=== PATIENT | female | born 1960 | race Caucasian/White ===

== ENCOUNTER 2016-12-07 05:14 | Emergency (ER) | payer MEDICAID ==
[2016-12-07] MEDS ORDERED: ASPIRIN 81 MG TABLET, CHEWABLE PO ONE (05:17)
[2016-12-07] MEDS ORDERED: DILTIAZEM HCL/D5W 125 MG/125 ML RTUINJ IV PRN (05:43)
[2016-12-07] MEDS ORDERED: DILTIAZEM HCL INJ 25 MG/5 ML VIAL IV ONE (05:43)
[2016-12-07 05:44] LABS: PROTHROMBIN TIME 12.6 SEC (11.4-15.4)
--- NOTE | 2016-12-07 05:45 | ER Document Report ---
ED Medical Screen (RME) <DAY HILL - Last Filed: 12/07/16 05:50> <ROGER HOLT - Last Filed: 12/07/16 07:35> - General Chief Complaint: Chest Pain Stated Complaint: CHEST PAIN Time Seen by Provider: 12/07/16 05:42 - Vital signs Vitals: Resp BP Pulse Ox 20 137/82 H 100 12/07/16 05:27 12/07/16 05:27 12/07/16 05:27 Course - Laboratory Result Diagrams: 12/07/16 05:27 12/07/16 05:27 <DAY HILL - Last Filed: 12/07/16 05:50> - Laboratory Result Diagrams: 12/07/16 06:00 12/07/16 05:27 <ROGER HOLT - Last Filed: 12/07/16 07:35> - Re-evaluation Re-evalutation: 12/07/16 07:35 Joshua transfer paged (ROGER HOLT) - Vital Signs Vital signs: Temp Pulse Resp BP Pulse Ox 23 H 125/90 H 94 12/07/16 07:19 12/07/16 07:19 12/07/16 07:19 - Laboratory Laboratory results interpreted by me: 12/07/16 12/07/16 12/07/16 05:27 05:27 05:27 WBC Hgb Hct Seg Neutrophils % Absolute Neutrophils Chloride 108 H Glucose 247 H Calcium 10.5 H Magnesium 1.4 L TSH 0.11 L 12/07/16 06:00 WBC 14.3 H Hgb 11.5 L Hct 33.7 L Seg Neutrophils % 78.7 H Absolute Neutrophils 11.2 H Chloride Glucose Calcium Magnesium TSH
[2016-12-07 05:53] LABS: ALANINE AMINOTRANSFERASE 22 U/L (9-52); ALBUMIN 4.2 g/dL (3.5-5.0); ALKALINE PHOSPHATASE 116 U/L (38-126); ANION GAP 13 (5-19); ASPARTATE AMINO TRANSFERASE 19 U/L (14-36); BILIRUBIN,DIRECT 0.4 mg/dL (0.0-0.4); BILIRUBIN,TOTAL 0.6 mg/dL (0.2-1.3); BLOOD UREA NITROGEN 16 mg/dL (7-20); CALCIUM 10.5 mg/dL (8.4-10.2); CARBON DIOXIDE 24 mmol/L (22-30); CHLORIDE 108 mmol/L (98-107); CREATINE KINASE 70 U/L (30-135); CREATININE RESULT 0.67 mg/dL (0.52-1.25); GLUCOSE 247 mg/dL (75-110); POTASSIUM 4.2 mmol/L (3.6-5.0); SODIUM 144.8 mmol/L (137-145); TOTAL PROTEIN 6.8 g/dL (6.3-8.2)
[2016-12-07 06:21] LABS: CREATINE KINASE MB 4.06 ng/mL (<4.55)
[2016-12-07 06:23] LABS: TROPONIN I 0.547 ng/mL
[2016-12-07 06:34] LABS: ABSOLUTE BASOPHILS # (AUTO) 0.1 10^3/uL (0.0-0.2); ABSOLUTE EOSINOPHILS # (AUTO) 0.1 10^3/uL (0.0-0.6); ABSOLUTE LYMPHOCYTES (AUTO) 2.3 10^3/uL (0.5-4.7); ABSOLUTE MONOCYTES (AUTO) 0.6 10^3/uL (0.1-1.4); ABSOLUTE NEUT (AUTO) 11.2 10^3/uL (1.7-8.2); BASOPHILS % (AUTO) 0.9 % (0-2); EOSINOPHILS % (AUTO) 0.7 % (0-6); HEMATOCRIT 33.7 % (36.0-47.0); HEMOGLOBIN 11.5 g/dL (12.0-15.5); HGB HCT DIFFERENCE 0.8; LYMPHOCYTES % (AUTO) 15.8 % (13-45); MEAN CORPUSCULAR HEMOGLOBIN 30.5 pg (27.0-33.4); MEAN CORPUSCULAR HGB CONC 34.1 g/dL (32.0-36.0); MEAN CORPUSCULAR VOLUME 89 fl (80-97); MONOCYTES % (AUTO) 3.9 % (3-13); RED BLOOD COUNT 3.78 10^6/uL (3.72-5.28); RED CELL DISTRIBUTION WIDTH 13.6 % (11.5-14.0); SEGMENTED NEUTROPHILS % (AUTO) 78.7 % (42-78); WHITE BLOOD COUNT 14.3 10^3/uL (4.0-10.5)
[2016-12-07] MEDS ORDERED: MORPHINE SULFATE 10 MG/ML INJ IV ONE (06:41)
[2016-12-07] MEDS ORDERED: ONDANSETRON HCL INJ/PF 4 MG/2 ML SDV IV ONE ×2 (06:42→09:53)
--- NOTE | 2016-12-07 07:35 | ER Document Report ---
ED General - General Chief Complaint: Chest Pain Stated Complaint: CHEST PAIN Time Seen by Provider: 12/07/16 05:42 Mode of Arrival: Medic Information source: Patient Notes: 56-year-old female history of double bypass in June at [facility] presents with complaints of chest pain shortness of breath difficulty breathing, EMS noted her heart rate in the 160s attempted to give the patient adenosine 2 for SVT but was unable to resolve the tachycardia. Patient refused any further intervention Patient notes she has had fast heart rates in the past but nothing like this - HPI Onset: Just prior to arrival Onset/Duration: Sudden Quality of pain: Pressure Severity: Moderate Pain Level: 3 Associated symptoms: Chest pain, Shortness of breath Exacerbated by: Denies Relieved by: Denies Similar symptoms previously: Yes Recently seen / treated by doctor: Yes Past Medical History - Social History Smoking Status: Never Smoker Cigarette use (# per day): No Chew tobacco use (# tins/day): No Smoking Education Provided: No Family History: Reviewed & Not Pertinent Review of Systems - Review of Systems Notes: REVIEW OF SYSTEMS: CONSTITUTIONAL : Denies fever, chills, or sweats. Denies recent illness. EENT: Denies eye, ear, throat, or mouth pain or symptoms. Denies nasal or sinus congestion or discharge. Denies throat, tongue, or mouth swelling or difficulty swallowing. CARDIOVASCULAR: Admits to chest pain RESPIRATORY: Admits to shortness of breath GASTROINTESTINAL: Denies abdominal pain or distention. Denies nausea, vomiting , or diarrhea. Denies blood in vomitus, stools, or per rectum. Denies black, tarry stools. Denies constipation. GENITOURINARY: Denies difficulty urinating, painful urination, burning, frequency, blood in urine, or discharge. FEMALE GENITOURINARY: Denies vaginal bleeding, heavy or abnormal periods, irregular periods. Denies vaginal discharge or odor. MUSCULOSKELETAL: Denies back or neck pain or stiffness. Denies joint pain or swelling. SKIN: Denies rash, lesions or sores. HEMATOLOGIC : Denies easy bruising or bleeding. LYMPHATIC: Denies swollen, enlarged glands. NEUROLOGICAL: Denies confusion or altered mental status. Denies passing out or loss of consciousness. Denies dizziness or lightheadedness. Denies headache. Denies weakness or paralysis or loss of use of either side. Denies problems with gait or speech. Denies sensory loss, numbness, or tingling. Denies seizures. PSYCHIATRIC: Denies anxiety or stress. Denies depression, suicidal ideation, or homicidal ideation. ALL OTHER SYSTEMS REVIEWED AND NEGATIVE. PHYSICAL EXAMINATION: GENERAL: Well-appearing, well-nourished and in no acute distress. HEAD: Atraumatic, normocephalic. EYES: Pupils equal round and reactive to light, extraocular movements intact, conjunctiva are normal. ENT: Nares patent, oropharynx clear without exudates. Moist mucous membranes. NECK: Normal range of motion, supple without lymphadenopathy LUNGS: Breath sounds clear to auscultation bilaterally and equal. No wheezes rales or rhonchi. HEART: Sinus tachycardia noted ABDOMEN: Soft, nontender, nondistended abdomen. No guarding, no rebound. No masses appreciated. Female : deferred Musculoskeletal: Normal range of motion, no pitting or edema. No cyanosis. NEUROLOGICAL: Cranial nerves grossly intact. Normal speech, normal gait. Normal sensory, motor exams PSYCH: Normal mood, normal affect. SKIN: Warm, Dry, normal turgor, no rashes or lesions noted. Dictation was performed using [employer] voice recognition software Physical Exam - Vital signs Vitals: Resp BP Pulse Ox 20 137/82 H 100 12/07/16 05:27 12/07/16 05:27 12/07/16 05:27 Course - Re-evaluation Re-evalutation: 12/07/16 07:38 Dr Sammi Lewis accepts transfer 12/07/16 10:06 I had contacted direction after noting that the patient was having sinus tachycardia chest pain with an elevated troponin, after speaking with them they agree for transfer, CTA was negative for a pulmonary emboli 12/07/16 10:07 Patient's heart rate is in the 130s at this time sinus tachycardia I am unsure if she actually had SVT or was just in sinus tach 12/07/16 10:11 Heparin has been started given that CTA was negative. Appears transport will be here at 12:00 patient notes she is pain-free just nauseous at this - Vital Signs Vital signs: Temp Pulse Resp BP Pulse Ox 20 122/81 98 12/07/16 09:43 12/07/16 09:43 12/07/16 09:43 - Laboratory Result Diagrams: 12/07/16 06:00 12/07/16 05:27 Laboratory results interpreted by me: 12/07/16 12/07/16 12/07/16 05:27 05:27 05:27 WBC Hgb Hct Seg Neutrophils % Absolute Neutrophils Chloride 108 H Glucose 247 H Calcium 10.5 H Magnesium 1.4 L TSH 0.11 L 12/07/16 06:00 WBC 14.3 H Hgb 11.5 L Hct 33.7 L Seg Neutrophils % 78.7 H Absolute Neutrophils 11.2 H Chloride Glucose Calcium Magnesium TSH - Diagnostic Test Radiology reviewed: Image reviewed, Reports reviewed - EKG Interpretation by Me EKG shows normal: Sinus rhythm, [place], Intervals, QRS Complexes Rate: Tachycardia Critical Care Note - Critical Care Note Total time excluding time spent on procedures (mins): 38 Comments: 38 minutes of critical care time spent in direct contact evaluating and reevaluating the patient, treating symptoms, reviewing labs and studies and speaking with family and consultants excluding any procedures Discharge - Discharge Clinical Impression: SVT (supraventricular tachycardia), Elevated troponin Coronary artery disease Qualifiers: Coronary Disease-Associated Artery/Lesion type: unspecified vessel or lesion type [place] vs. transplanted heart: [place] heart Associated angina: angina presence unspecified Qualified Code(s): I25.10 - Atherosclerotic heart disease of [place] coronary artery without angina pectoris Disposition: OTHER
--- NOTE | 2016-12-07 07:36 | RADIOLOGY REPORT (SQ) ---
EXAM DESCRIPTION: CHEST SINGLE VIEW COMPLETED DATE/TIME: 12/07/2016 7:27 am REASON FOR STUDY: palpitations COMPARISON: None. EXAM PARAMETERS: NUMBER OF VIEWS: One view. TECHNIQUE: Single frontal radiographic view of the chest acquired. RADIATION DOSE: NA LIMITATIONS: None. FINDINGS: LUNGS AND PLEURA: Moderate interstitial markings with septal thickening and lower lobe pre dominance. MEDIASTINUM AND HILAR STRUCTURES: No masses. Contour normal. HEART AND VASCULAR STRUCTURES: Heart normal in size. Normal vasculature. BONES: No acute findings. HARDWARE: Sternotomy. OTHER: No other significant finding. IMPRESSION: Moderate interstitial markings with. Differential diagnosis includes pulmonary edema an d/or chronic interstitial lung disease. TECHNICAL DOCUMENTATION: JOB ID: [id number]
--- NOTE | 2016-12-07 08:55 | RADIOLOGY REPORT (SQ) ---
EXAM DESCRIPTION: CTA CHEST COMPLETED DATE/TIME: 12/07/2016 8:39 am REASON FOR STUDY: sob, chest pain COMPARISON: Chest x-ray dated 12/07/2016. TECHNIQUE: CT scan of the chest performed using helical scanning technique with dynamic intravenous contrast injection. Images reviewed with lung, soft tissue and bone windows. Reconstructed coronal and sagittal MPR images reviewed. Additional 3 dimensional post-processing performed to develop Maximal Intensity Projection images (IN P). All images stored on PACS. All CT scanners at this facility use dose modulation, iterative reconstruction, and/or weight based d osing when appropriate to reduce radiation dose to as low as reasonably achievable (ALARA). [facility]: Dose Right [facility]: CareDose [facility]: Dose Right [facility]: Teradose 4D [facility]: [employer] CONTRAST TYPE AND DOSE: contrast/concentration: Isovue 370.00 mg/ml; Total Contrast Delivered: 65.0 ml; Total Saline Delivered: 105.1 ml Contrast bolus optimized for the pulmonary arteries. Not diagnostic for the aorta. RENAL FUNCTION: BUN 16 creatinine 0.67. RADIATION DOSE: Up-to-date CT equipment and radiation dose reduction techniques were employed. CTDIv ol: 14.3 - 16.5 mGy. DLP: 542 mGy-cm. . LIMITATIONS: None. FINDINGS: LUNGS AND PLEURA: Diffuse interstitial prominence. Small pleural effusions. No focal inf iltrates. No pneumothorax. AORTA AND GREAT VESSELS: No aneurysm. Contrast bolus not optimized for the aorta. HEART: No pericardial effusion. No significant coronary artery calcifications. PULMONARY ARTERIES: No emboli visualized in the main pulmonary arteries or the segmental branches. HILAR AND MEDIASTINAL STRUCTURES: No identified masses or abnormal nodes. HARDWARE: Sternotomy wires. Mitral valve prosthesis. UPPER ABDOMEN: No significant findings. Limited exam. THYROID AND OTHER SOFT TISSUES: No masses. No adenopathy. BONES: No acute or significant finding. 3D MIPS: Confirm above findings. OTHER: No other significant finding. IMPRESSION: 1. NORMAL CTA OF THE CHEST. NO PULMONARY EMBOLI. 2. SMALL PLEURAL EFFUSIONS. DIFFUSE INTERSTITIAL PROMINENCE WHICH MAY BE DUE TO INTERSTITIAL EDEMA A ND/OR CHRONIC SCARRING. COMMENT: Quality ID # [id number]: Final reports with documentation of one or more dose reduction techniques (e.g., Automated exposure control, adjustment of the mA and/or kV according to patient size, use of iterative reconstruction technique) TECHNICAL DOCUMENTATION: JOB ID: [id number] [employer]- All Rights Reserved
[2016-12-07] MEDS ORDERED: HYDROMORPHONE HCL INJ/PF 2 MG/ML AMPULE IV ONE (09:22)
[2016-12-07] MEDS ORDERED: HEPARIN SOD (PORCINE) 1,000 UNIT/ML 10 ML VIAL IV PRN (10:11)
[2016-12-07] MEDS ORDERED: HEPARIN SOD (PORCINE) 1,000 UNIT/ML 10 ML VIAL IV ONE (10:11)
[2016-12-07] MEDS ORDERED: HEPARIN SODIUM,PORCINE/D5W 25,000 UNIT/250 ML RTUINJ IV PRN (10:11)
--- NOTE | 2016-12-07 11:49 | EKG REPORT ---
SEVERITY:- ABNORMAL ECG - SINUS TACHYCARDIA PROBABLE LEFT ATRIAL ABNORMALITY ANTERIOR INFARCT, AGE INDETERMINATE BORDERLINE T ABNORMALITIES, INFERIOR LEADS : Confirmed by: Maxwell Murray 07-Dec-2016 11:47:54
[2016-12-07 13:07] VITALS: BP 118/78
== END 2016-12-07 13:07 | disposition other institution (70) ==
LOC: ER 05:14
DX: I47.1 Supraventricular tachycardia (principal); R74.8 Abnormal levels of other serum enzymes; I25.10 Atherosclerotic heart disease of native coronary artery without angina pectoris; R06.02 Shortness of breath; R07.9 Chest pain, unspecified; Z95.1 Presence of aortocoronary bypass graft
CPT/HCPCS: 93005; 96376; 99291; 96374; 96375; 36415; 82553; 82550; 83735; 84443; 85025; 85610; 80053; 84484; 71010; 71275; 93010; J1644; J2270; J1170; J2405

== ENCOUNTER 2017-03-19 21:43 | Emergency (ER) | payer MEDICAID ==
--- NOTE | 2017-03-19 22:34 | ER Document Report ---
ED General - General Chief Complaint: Leg Injury Stated Complaint: LEG PAIN Time Seen by Provider: 03/19/17 22:29 Notes: Patient is a 56-year-old female who presents with right leg pain that is been present for the past 1 month and has gotten progressively worse. She states that this started after she had a peripheral angiogram performed for peripheral arterial disease. She states that they performed a puncture on her left side to catheterized the right side. She states that since that time she has had a intermittent, shocking, shooting pain to the right lower extremity that is severe. She states that it is seems to be worse at night. She does note a history of long-standing peripheral neuropathy and states that this feels like a severe version of that. However she states when she contacted the follow-up surgical office she was encouraged to come to the emergency department for evaluation of a possible DVT by ultrasound. She has no prior history of DVT or pulmonary embolus. She does not take any form of anticoagulation. TRAVEL OUTSIDE OF THE [place] IN LAST 30 DAYS: No - Related Data Allergies/Adverse Reactions: lisinopril Allergy (Verified 03/19/17 21:50) Past Medical History - General Information source: Patient - Social History Smoking Status: Never Smoker Frequency of alcohol use: None Drug Abuse: None Lives with: Family Family History: Reviewed & Not Pertinent Patient has suicidal ideation: No Patient has homicidal ideation: No Renal/ Medical History: Denies: Hx Peritoneal Dialysis Review of Systems - Review of Systems Notes: Constitutional: Negative for fever. HENT: Negative for sore throat. Eyes: Negative for visual changes. Cardiovascular: Negative for chest pain. Respiratory: Negative for shortness of breath. Gastrointestinal: Negative for abdominal pain, vomiting or diarrhea. Genitourinary: Negative for dysuria. Musculoskeletal: Positive for right leg pain Skin: Negative for rash. Neurological: Negative for headaches, weakness or numbness. 10 point ROS negative except as marked above and in HPI. Physical Exam - Vital signs Vitals: Resp Pulse Ox 11 L 100 03/19/17 22:18 03/19/17 22:18 Interpretation: Normal Notes: PHYSICAL EXAMINATION: GENERAL: Well-appearing, well-nourished and in no acute distress. HEAD: Atraumatic, normocephalic. EYES: Pupils equal round and reactive to light, extraocular movements intact, sclera anicteric, conjunctiva are normal. ENT: nares patent, oropharynx clear without exudates. Moist mucous membranes. NECK: Normal range of motion, supple without lymphadenopathy LUNGS: Breath sounds clear to auscultation bilaterally and equal. No wheezes rales or rhonchi. HEART: Regular rate and rhythm without murmurs ABDOMEN: Soft, nontender, normoactive bowel sounds. No guarding, no rebound. No masses appreciated. EXTREMITIES: Normal range of motion, no pitting or edema. No cyanosis. NEUROLOGICAL: No focal neurological deficits. Moves all extremities spontaneously and on command. PSYCH: Normal mood, normal affect. SKIN: Warm, Dry, normal turgor, no rashes or lesions noted. Course - Re-evaluation Re-evalutation: 03/19/17 22:32 Patient presents with 1 month of leg pain unchanged today but was referred to the emergency department by her primary doctor with concerns of possible DVT after having a peripheral angiography with stent placement on the right side 1 month ago. Patient describes her symptoms to be much more neuropathic in origin describing it as a shocking, burning sensation from her knee towards her ankle that has been worse since the procedure suggesting a possible neurologic irritation during the procedure itself. Initially patient had hypotension at presentation but this was normalized by the time of my evaluation and she denies any additional symptoms. She notes that she has been checking her blood pressure intermittently at home and notes that it sometimes is low but then will normalize on the next check. Unfortunately cannot obtain a venous Doppler ultrasound given the time of the night and I encouraged the patient to return to the emergency department in the morning for completion of the study if they concern persist for DVT. I explained the patient that I cannot definitively rule this diagnosis out without a ultrasound but have an overall low clinical suspicion given the absence of any evidence of peripheral edema, as well as her clinical history. Will obtain basic laboratories to evaluate for significant anemia given her recent angiography procedure and initial hypotension. Multiple rechecks was in the room remained persistently normal. 03/20/17 00:12 Labs are unremarkable. Blood pressure remains within normal limits on recheck. At this time will discharge with return precautions and follow-up recommendations. Verbal discharge instructions given a the bedside and opportunity for questions given. Medication warnings reviewed. Patient is in agreement with this plan and has verbalized understanding of return precautions and the need for return to the emergency department in the morning for a venous Doppler ultrasound to exclude a DVT. - Vital Signs Vital signs: Temp Pulse Resp BP Pulse Ox 16 103/58 L 100 03/20/17 00:27 03/20/17 00:10 03/20/17 00:27 - Laboratory Result Diagrams: 03/19/17 22:37 03/19/17 22:37 Laboratory results interpreted by me: 03/19/17 03/19/17 22:37 22:37 Hgb 11.5 L Hct 34.6 L Est GFR (Non-Af Amer) 55 L Glucose 188 H Discharge - Discharge Clinical Impression: Right leg pain Condition: Good Disposition: HOME, SELF-CARE Additional Instructions: Please return to the emergency department in the morning for a venous ultrasound of your right leg as requested by your doctor. Return for any additional concerns you may have.
[2017-03-19 22:49] LABS: ABSOLUTE BASOPHILS # (AUTO) 0.1 10^3/uL (0.0-0.2); ABSOLUTE EOSINOPHILS # (AUTO) 0.3 10^3/uL (0.0-0.6); ABSOLUTE LYMPHOCYTES (AUTO) 3.6 10^3/uL (0.5-4.7); ABSOLUTE MONOCYTES (AUTO) 0.6 10^3/uL (0.1-1.4); ABSOLUTE NEUT (AUTO) 5.3 10^3/uL (1.7-8.2); BASOPHILS % (AUTO) 0.7 % (0-2); EOSINOPHILS % (AUTO) 2.7 % (0-6); HEMATOCRIT 34.6 % (36.0-47.0); HEMOGLOBIN 11.5 g/dL (12.0-15.5); LYMPHOCYTES % (AUTO) 36.8 % (13-45); MEAN CORPUSCULAR HEMOGLOBIN 30.3 pg (27.0-33.4); MEAN CORPUSCULAR HGB CONC 33.3 g/dL (32.0-36.0); MEAN CORPUSCULAR VOLUME 91 fl (80-97); MONOCYTES % (AUTO) 5.9 % (3-13); PLATELET COUNT 192 10^3/uL (150-450); SEGMENTED NEUTROPHILS % (AUTO) 53.9 % (42-78); TOTAL CELLS COUNTED % (AUTO) 100 %; WHITE BLOOD COUNT 9.8 10^3/uL (4.0-10.5)
[2017-03-19 23:01] LABS: ANION GAP 12 (5-19); BLOOD UREA NITROGEN 16 mg/dL (7-20); CALCIUM 9.9 mg/dL (8.4-10.2); CARBON DIOXIDE 26 mmol/L (22-30); CHLORIDE 104 mmol/L (98-107); GLUCOSE 188 mg/dL (75-110); POTASSIUM 4.1 mmol/L (3.6-5.0); SODIUM 141.7 mmol/L (137-145)
[2017-03-20 00:27] VITALS: BP 103/58
--- NOTE | 2017-03-20 07:57 | EKG REPORT ---
SEVERITY:- ABNORMAL ECG - SINUS RHYTHM PROBABLE LVH WITH SECONDARY REPOL ABNRM : Confirmed by: Yuki Covarrubias MD 20-Mar-2017 07:56:14
== END 2017-03-20 00:37 | disposition home or self-care (01) ==
LOC: ER 21:43
DX: M79.604 Pain in right leg (principal); I73.9 Peripheral vascular disease, unspecified; I95.9 Hypotension, unspecified; Z95.820 Peripheral vascular angioplasty status with implants and grafts; Z88.8 Allergy status to other drugs, medicaments and biological substances
CPT/HCPCS: 36415; 80048; 85025; 93005; 93010; 99284

== ENCOUNTER 2017-06-25 12:14 | Emergency (ER) | payer MEDICAID ==
[2017-06-25] MEDS ORDERED: ASPIRIN 81 MG TABLET, CHEWABLE PO ONE (12:21)
[2017-06-25] MEDS ORDERED: ASPIRIN 325 MG TABLET PO ONE (12:21)
--- NOTE | 2017-06-25 12:23 | ER Document Report ---
Doctor's Note Notes: 06/25/17 12:22 EKG seen / signed Depressions II III aVF and lateral leads D/w Main ED Provider and assistant operations manager Pt to be roomed immediately
[2017-06-25] MEDS ORDERED: NITROGLYCERIN/D5W 50 MG/250 ML RTUINJ IV PRN (12:40)
--- NOTE | 2017-06-25 12:43 | ER Document Report ---
ED General - General Chief Complaint: Chest Pain Stated Complaint: CHEST PAIN Time Seen by Provider: 06/25/17 12:21 Notes: Patient with a history of bypass presents with chest pain central pressure-like nonradiating with nausea and diaphoresis onset 4 AM continuous until she received Nitropaste from paramedics. Extensive cardiac history. Was transferred to [facility] in the last year from here and ruled in for [place], had a subsequent bypass. Claims medication compliance. There was some concern for STEMI on her prehospital EKG and this was faxed to the STEMI center which refused the patient is a STEMI based on EKG. TRAVEL OUTSIDE OF THE [place] IN LAST 30 DAYS: No - Related Data Allergies/Adverse Reactions: lisinopril Allergy (Verified 03/19/17 21:50) Past Medical History - Social History Smoking Status: Former Smoker Family History: Reviewed & Not Pertinent Renal/ Medical History: Denies: Hx Peritoneal Dialysis Review of Systems - Review of Systems Notes: REVIEW OF SYSTEMS GEN: Denies fever, chills, weight loss ENT: Denies sore throat, nasal discharge, ear pain EYES: Denies blurry vision, eye pain, discharge CV: Chest pain RESP: Shortness of breath no cough GI: Denies abdominal pain, nausea, vomiting, diarrhea MSK: Denies joint pain/swelling, edema, SKIN: Denies rash, skin lesions LYMPH: Denies swollen glands/lymph nodes NEURO: Denies headache, focal weakness or numbness, dizziness PSYCH: Denies depression, suicidal or homicidal ideation PHYSICAL EXAMINATION General: Pale, moderate distress Head: Atraumatic, normocephalic ENT: Mouth normal, oropharynx moist, no exudates or tonsillar enlargement Eyes: Conjunctiva normal, pupils equal, lids normal Neck: No JVD, supple, no guarding CVS: Normal rate, regular rhythm, no murmurs Resp: No resp distress, equal and normal breath sounds bilaterally GI: Nondistended, soft, no tenderness to palpation, no rebound or guarding Ext: No deformities, no edema, normal range of motion in upper and lower ext Back: No CVA or midline TTP Skin: No rash, warm Lymphatic: No lymphadeopathy noted Neuro: Awake, alert. Face symmetric. GCS 15. Physical Exam - Vital signs Vitals: Resp BP Pulse Ox 27 H 116/104 H 97 06/25/17 12:37 06/25/17 12:37 04/04/18 12:37 Course - Re-evaluation Re-evalutation: 06/25/17 12:47 Patient presents with acute chest pain and history of coronary disease. Abnormal EKG here consisting of global ST depression, less than 1 m millimeter of elevation in V1 and about a millimeter and a half of elevation in V2. This is new from prior but the ST depressions are similar. While in the ED the patient complained of worse pain. I will switch her to a nitro drip and start Lovenox because I am concerned for an STEMI/unstable angina. EKG was repeated in the posterior fashion and did not show ST elevation. Contacted [facility] for transfer. 06/25/17 13:05 Reassessed at 1 PM. Nitro drip was not started that the patient is pain-free and states that the pain is coming and going. Subsequent repeat EKG showed decreased ST elevation, constituting dynamic change. She is received Lovenox. I discussed her with Dr. Benjamin from cardiology at [facility] and he wants to look at the EKGs before making a decision about activating the [facility] for her or taking her by ground. 06/25/17 13:[address] Benjamin who wants to call the STEMI based on EKG asked for heparin , not Lovenox, and no other meds. They are sending helicopter. Patient is pain -free. - Vital Signs Vital signs: Temp Pulse Resp BP Pulse Ox 98.7 F 21 H 126/80 H 98 06/25/17 13:05 06/25/17 13:01 06/25/17 13:01 06/25/17 13:01 - Laboratory Result Diagrams: 06/25/17 12:35 06/25/17 12:35 Laboratory results interpreted by me: 06/25/17 12:35 RBC 3.69 L Hgb 11.1 L Hct 33.6 L - Diagnostic Test Radiology reviewed: Image reviewed, Reports reviewed - EKG Interpretation by Me EKG shows normal: Sinus rhythm Rate: Normal When compared to previous EKG there are: Changes noted - Diffuse ST depression. Different from prior. ST elevation less than 1 mm in V2 and less than 1 mm in V1. Critical Care Note - Critical Care Note Total time excluding time spent on procedures (mins): 45 Comments: The above patient is critically ill. Not including procedures, but including direct re-evaluations, speaking with patient and/or consultants, interpreting results, and documenting, I spent the total amount of minute listed listed above on critical care time Discharge - Discharge Clinical Impression: Unstable angina pectoris Condition: Critical
[2017-06-25] MEDS ORDERED: ENOXAPARIN SODIUM INJ 60 MG/0.6 ML DISP.SYRIN SUBCUT SCH (12:45)
[2017-06-25] MEDS: ASPIRIN 325 MG TABLET, ENT COATED PO SCH ×2 (12:51→12:52)
[2017-06-25] MEDS ORDERED: HEPARIN SODIUM,PORCINE/D5W 25,000 UNIT/250 ML RTUINJ IV PRN (13:09)
[2017-06-25] MEDS ORDERED: HEPARIN SOD (PORCINE) 1,000 UNIT/ML 10 ML VIAL IV ONE (13:09)
[2017-06-25 13:11] LABS: ABSOLUTE BASOPHILS # (AUTO) 0.1 10^3/uL (0.0-0.2); ABSOLUTE EOSINOPHILS # (AUTO) 0.2 10^3/uL (0.0-0.6); ABSOLUTE LYMPHOCYTES (AUTO) 1.5 10^3/uL (0.5-4.7); ABSOLUTE MONOCYTES (AUTO) 0.4 10^3/uL (0.1-1.4); BASOPHILS % (AUTO) 0.8 % (0-2); EOSINOPHILS % (AUTO) 1.9 % (0-6); HEMATOCRIT 33.6 % (36.0-47.0); HEMOGLOBIN 11.1 g/dL (12.0-15.5); LYMPHOCYTES % (AUTO) 16.5 % (13-45); MEAN CORPUSCULAR HEMOGLOBIN 30.1 pg (27.0-33.4); MEAN CORPUSCULAR VOLUME 91 fl (80-97); MONOCYTES % (AUTO) 4.1 % (3-13); PLATELET COUNT 207 10^3/uL (150-450); RED BLOOD COUNT 3.69 10^6/uL (3.72-5.28); RED CELL DISTRIBUTION WIDTH 13.3 % (11.5-14.0); SEGMENTED NEUTROPHILS % (AUTO) 76.7 % (42-78); TOTAL CELLS COUNTED % (AUTO) 100 %; WHITE BLOOD COUNT 9.2 10^3/uL (4.0-10.5)
[2017-06-25] MEDS ORDERED: HEPARIN SOD (PORCINE) 1,000 UNIT/ML 1 ML VIAL IV STA (13:22)
[2017-06-25 13:25] LABS: ANION GAP 9 (5-19); BLOOD UREA NITROGEN 20 mg/dL (7-20); CALCIUM 8.4 mg/dL (8.4-10.2); CARBON DIOXIDE 23 mmol/L (22-30); CHLORIDE 111 mmol/L (98-107); GLUCOSE 208 mg/dL (75-110); INTERNATIONAL RATION (INR) 0.94; POTASSIUM 4.6 mmol/L (3.6-5.0); PROTHROMBIN TIME 13.3 SEC (11.4-15.4); SODIUM 143.2 mmol/L (137-145)
--- NOTE | 2017-06-25 13:26 | RADIOLOGY REPORT (SQ) ---
EXAM DESCRIPTION: CHEST SINGLE VIEW COMPLETED DATE/TIME: 06/25/2017 1:11 pm REASON FOR STUDY: CP COMPARISON: 12/07/2016 EXAM PARAMETERS: NUMBER OF VIEWS: One view. TECHNIQUE: Single frontal radiographic view of the chest acquired. RADIATION DOSE: NA LIMITATIONS: None. FINDINGS: LUNGS AND PLEURA: The lungs are mildly hyperexpanded. There are chronic interstitial zarate ges in the lung bases. There is no infiltrate or effusion. MEDIASTINUM AND HILAR STRUCTURES: No masses. Contour normal. HEART AND VASCULAR STRUCTURES: Heart normal in size. Normal vasculature. BONES: No acute findings. HARDWARE: Sternotomy wires. Heart valve. OTHER: No other significant finding. IMPRESSION: Chronic lung changes with no acute cardiopulmonary disease. TECHNICAL DOCUMENTATION: JOB ID: [id number] [employer]- All Rights Reserved Reading location - IP/workstation name: [email or web address]
[2017-06-25 14:08] VITALS: BP 124/99
--- NOTE | 2017-06-25 23:14 | EKG REPORT ---
SEVERITY:- ABNORMAL ECG - SINUS TACHYCARDIA ANTERIOR INFARCT, AGE INDETERMINATE : Confirmed by: Maxwell Murray 25-Jun-2017 23:13:23
--- NOTE | 2017-06-25 23:14 | EKG REPORT ---
SEVERITY:- ABNORMAL ECG - SINUS TACHYCARDIA CONSIDER ANTEROSEPTAL INFARCT NONSPECIFIC REPOL ABNORMALITY, DIFFUSE LEADS : Confirmed by: Maxwell Murray 25-Jun-2017 23:13:39
--- NOTE | 2017-06-25 23:15 | EKG REPORT ---
SEVERITY:- ABNORMAL ECG - SINUS TACHYCARDIA CONSIDER ANTEROSEPTAL INFARCT NONSPECIFIC REPOL ABNORMALITY, DIFFUSE LEADS : Confirmed by: Maxwell Murray 25-Jun-2017 23:14:35
== END 2017-06-25 14:08 | disposition other institution (70) ==
LOC: ER 12:14
DX: I20.0 Unstable angina (principal); R07.9 Chest pain, unspecified; R11.0 Nausea; R61 Generalized hyperhidrosis; R06.02 Shortness of breath; Z87.891 Personal history of nicotine dependence
CPT/HCPCS: 93005; 99291; 96375; 96365; 36415; 85025; 85610; 80048; 84484; 71045; 93010; J1644; J3490

== ENCOUNTER 2018-05-29 14:56 | Emergency (ER) | payer OTHER, MEDICAID ==
[2018-05-29] MEDS ORDERED: ACETAMINOPHEN 325 MG TABLET PO ONE (15:39)
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
[2018-05-29] MEDS ORDERED: LIDOCAINE 5% (700 MG) TRANSDERMAL ADH..PATCH TP ONE (16:22)
[2018-05-29 16:50] VITALS: BP 136/52
== END 2018-05-29 16:49 | disposition home or self-care (01) ==
LOC: ER 14:56
DX: S16.1XXA Strain of muscle, fascia and tendon at neck level, initial encounter (principal); S43.402A Unspecified sprain of left shoulder joint, initial encounter; M54.2 Cervicalgia; M25.552 Pain in left hip; R51 Headache; M25.512 Pain in left shoulder; V87.7XXA Person injured in collision between other specified motor vehicles (traffic), initial encounter; F17.200 Nicotine dependence, unspecified, uncomplicated; I10 Essential (primary) hypertension; J45.909 Unspecified asthma, uncomplicated; E11.9 Type 2 diabetes mellitus without complications
CPT/HCPCS: 72125; 99284

== ENCOUNTER 2018-06-10 15:48 | Emergency (ER) | payer OTHER, MEDICAID ==
[2018-06-10 15:54] VITALS: BP 148/63
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
== END 2018-06-10 16:40 | disposition home or self-care (01) ==
LOC: ER 15:48
DX: S16.1XXA Strain of muscle, fascia and tendon at neck level, initial encounter (principal); G44.209 Tension-type headache, unspecified, not intractable; M25.519 Pain in unspecified shoulder; V49.9XXA Car occupant (driver) (passenger) injured in unspecified traffic accident, initial encounter; F17.210 Nicotine dependence, cigarettes, uncomplicated; M47.9 Spondylosis, unspecified; F32.9 Major depressive disorder, single episode, unspecified; R20.0 Anesthesia of skin; J45.909 Unspecified asthma, uncomplicated; I10 Essential (primary) hypertension; M79.7 Fibromyalgia; E11.42 Type 2 diabetes mellitus with diabetic polyneuropathy; M25.559 Pain in unspecified hip; G89.29 Other chronic pain; Z79.891 Long term (current) use of opiate analgesic; Z79.02 Long term (current) use of antithrombotics/antiplatelets; Z95.1 Presence of aortocoronary bypass graft
CPT/HCPCS: 99283; L0120

== ENCOUNTER → 2018-06-15 | Outpatient (CLI) | payer MEDICAID | LOC: WI 13:17 | PROVIDERS: ATTEND Physician Assistant | DX: Z12.31 Encounter for screening mammogram for malignant neoplasm of breast (principal) | CPT/HCPCS: 77067 ==

== ENCOUNTER 2018-12-03 15:44 | Observation (INO) | payer MEDICAID ==
[2018-12-03 16:19] LABS: ABSOLUTE BASOPHILS # (AUTO) 0.1 10^3/uL (0.0-0.2); ABSOLUTE EOSINOPHILS # (AUTO) 0.2 10^3/uL (0.0-0.6); ABSOLUTE LYMPHOCYTES (AUTO) 2.3 10^3/uL (0.5-4.7); ABSOLUTE MONOCYTES (AUTO) 0.5 10^3/uL (0.1-1.4); ABSOLUTE NEUT (AUTO) 7.2 10^3/uL (1.7-8.2); BASOPHILS % (AUTO) 0.5 % (0-2); EOSINOPHILS % (AUTO) 1.9 % (0-6); HEMATOCRIT 36.2 % (36.0-47.0); LYMPHOCYTES % (AUTO) 22.1 % (13-45); MEAN CORPUSCULAR HEMOGLOBIN 29.6 pg (27.0-33.4); MEAN CORPUSCULAR HGB CONC 33.2 g/dL (32.0-36.0); MEAN CORPUSCULAR VOLUME 89 fl (80-97); MONOCYTES % (AUTO) 4.9 % (3-13); PLATELET COUNT 326 10^3/uL (150-450); RED BLOOD COUNT 4.06 10^6/uL (3.72-5.28); RED CELL DISTRIBUTION WIDTH 13.9 % (11.5-14.0); SEGMENTED NEUTROPHILS % (AUTO) 70.6 % (42-78); TOTAL CELLS COUNTED % (AUTO) 100 %; WHITE BLOOD COUNT 10.2 10^3/uL (4.0-10.5)
[2018-12-03 16:31] LABS: INTERNATIONAL RATION (INR) 0.93; PROTHROMBIN TIME 12.5 SEC (11.4-15.4)
[2018-12-03] MEDS ORDERED: IPRATROPIUM/ALBUTEROL 0.5-2.5 MG/3 ML AMPUL NEB ONE (16:32)
[2018-12-03] MEDS ORDERED: METHYLPREDNISOLONE INJ 125 MG/2 ML SDV IV ONE (16:33)
[2018-12-03] MEDS: MAGNESIUM SULFATE/D5W 1 GM/100 ML RTUPB IV SCH ×2 (16:57→19:28)
[2018-12-03] MEDS ORDERED: ONDANSETRON HCL INJ/PF 4 MG/2 ML SDV IV ONE (17:45)
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
[2018-12-03 18:27] LABS: VENOUS BLOOD BASE EXCESS 3.5 mmol/L; VENOUS BLOOD HCO3 30.5 mmol/L (20-32); VENOUS BLOOD PCO2 55.4 mmHg (35-63); VENOUS BLOOD PH 7.36 (7.30-7.42)
[2018-12-03 19:08] LABS: ALBUMIN 4.8 g/dL (3.5-5.0); ALKALINE PHOSPHATASE 124 U/L (38-126); ANION GAP 13 (5-19); ASPARTATE AMINO TRANSFERASE 20 U/L (14-36); BILIRUBIN,DIRECT 0.1 mg/dL (0.0-0.4); BILIRUBIN,TOTAL 0.5 mg/dL (0.2-1.3); BLOOD UREA NITROGEN 18 mg/dL (7-20); CALCIUM 10.8 mg/dL (8.4-10.2); CARBON DIOXIDE 27 mmol/L (22-30); CHLORIDE 102 mmol/L (98-107); GLUCOSE 171 mg/dL (75-110); POTASSIUM 4.8 mmol/L (3.6-5.0); TOTAL PROTEIN 8.2 g/dL (6.3-8.2)
--- NOTE | 2018-12-03 19:24 | ER Document Report ---
ED General - General Chief Complaint: Chest Pain Stated Complaint: CHEST PAIN Time Seen by Provider: 12/03/18 16:21 Primary Care Provider: LETICIA JOHNSON MD [Primary Care Provider] - Follow up as needed Notes: Patient is a 58-year-old female history of COPD, coronary artery disease, CABG with stent and valve replacement presents to the emergency department for generalized respiratory distress. Patient states she has had a generalized cough and congestion for the last week. Patient is admitting to subjective fevers. Patient states today when she tries to take a deep breath she feels a pressure in the center of her chest. Patient voices that she is coughing up lots of "heavy mucus." Patient is denying any abdominal pain, nausea, vomiting, dysuria. Patient voices she takes isosorbide, carvedilol, digoxin, albuterol, Spiriva, Advair Allergies to lisinopril TRAVEL OUTSIDE OF THE [place] IN LAST 30 DAYS: No - Related Data Allergies/Adverse Reactions: lisinopril Allergy (Verified 05/29/18 14:58) Past Medical History - General Information source: Patient - Social History Smoking Status: Current Every Day Smoker Family History: Reviewed & Not Pertinent Patient has suicidal ideation: No Patient has homicidal ideation: No - Past Medical History Cardiac Medical History: Reports: Hx Hypercholesterolemia, Hx Hypertension Pulmonary Medical History: Reports: Hx Asthma, Hx Sleep Apnea Endocrine Medical History: Reports: Hx Diabetes Mellitus Type 2 Renal/ Medical History: Denies: Hx Peritoneal Dialysis GI Medical History: Reports: Hx Gastroesophageal Reflux Disease Musculoskeletal Medical History: Reports Hx Arthritis, Reports Hx Fibromyalgia Psychiatric Medical History: Reports: Hx Depression Past Surgical History: Reports: Hx Cardiac Surgery - CABG, Hx Coronary Artery Bypass Graft Review of Systems - Review of Systems Constitutional: Fever EENT: See HPI Cardiovascular: See HPI Respiratory: See HPI Gastrointestinal: No symptoms reported Genitourinary: No symptoms reported Female Genitourinary: No symptoms reported Musculoskeletal: No symptoms reported Skin: No symptoms reported Hematologic/Lymphatic: No symptoms reported Neurological/Psychological: No symptoms reported Physical Exam - Vital signs Vitals: Temp Pulse Resp BP Pulse Ox 98.1 F 124 H 22 H 157/94 H 95 12/03/18 15:56 12/03/18 15:56 12/03/18 15:56 12/03/18 15:56 12/03/18 15:56 - Notes Notes: GENERAL: Alert, interacts well. Moderate respiratory distress, tachypneic with tripod position noted. On oxygen 4 L/min via EMS. HEAD: Normocephalic, atraumatic. EYES: Pupils equal, round, and reactive to light. Extraocular movements intact. ENT: Oral mucosa moist, tongue midline. Nares patent, TM's intact, nonerythem atous, nonbulging bilaterally. NECK: Full range of motion. Supple. Trachea midline. LUNGS: Inspiratory and expiratory wheezes to auscultation bilaterally. HEART: Tachycardic rate and rhythm. No murmur ABDOMEN: Soft, non-tender. Non-distended. Bowel sounds present in all 4 quadrants. EXTREMITIES: Moves all 4 extremities spontaneously. No edema, normal radial and dorsalis pedis pulses bilaterally. No cyanosis. BACK: no cervical, thoracic, lumbar midline tenderness. No saddle anesthesia, normal distal neurovascular exam. NEUROLOGICAL: Alert and oriented x3. Normal speech. cranial nerves II through XII grossly intact PSYCH: Normal affect, normal mood. SKIN: Warm, dry, normal turgor. No rashes or lesions noted. Course - Re-evaluation Re-evalutation: 12/03/18 19:23 Patient was placed on oxygen via EMS. She is at 100% after breathing treatments. Patient is minorly tachypneic at a rate of 24. I have turned patient's oxygen off to see how her oxygen saturations do. Patient is noted to desat to 85%. With a respiratory rate of 20. Patient replaced on oxygen 2 L/min via nasal cannula. Awaiting CTA results. 12/03/18 20:16 Patient care and results transferred to Kriss Mccormick PA-C for evaluation of results of CTA and hopeful admission. - Vital Signs Vital signs: Temp Pulse Resp BP Pulse Ox 98.1 F 124 H 18 121/85 98 12/03/18 15:56 12/03/18 15:56 12/03/18 19:01 12/03/18 19:00 12/03/18 19:57 - Laboratory Result Diagrams: 12/03/18 15:10 12/03/18 17:58 Laboratory results interpreted by me: 12/03/18 12/03/18 16:11 17:58 Est GFR (MDRD) Non-Af 59 L Glucose 171 H POC Glucose 193 H Calcium 10.8 H Magnesium 1.4 L Discharge - Discharge Clinical Impression: COPD exacerbation Condition: Fair Disposition: ADMITTED INPATIENT Referrals: LETICIA JOHNSON MD [Primary Care Provider] - Follow up as needed
[2018-12-03] MEDS ORDERED: NORMAL SALINE 1000 ML 1,000 ML IV ONE ×2 (19:57→21:31)
--- NOTE | 2018-12-03 20:24 | RADIOLOGY REPORT (SQ) ---
EXAM DESCRIPTION: CT CHEST ANGIOGRAPHY WITHOUT THEN WITH IV CONTRAST , Three-dimensional reconstructions COMPLETED DATE/TME: 12/03/2018 18:41 CLINICAL HISTORY: 58 years, Female, SOB tachy Compared to CT chest dated 12/07/2016. This exam was performed according to our departmental dose-optimization program which includes automated exposure control, adjustment of the mA and/or kVp according to patient size and/or use of iterative reconstruction technique where applicable. . FINDINGS: Aorta is mildly calcified without aneurysm or dissection. Pulmonary arteries are well opacified with no significant filling defects in the pulmonary arterial tree to suggest acute pulmonary embolism. No significant mediastinal, hilar or axillary lymphadenopathy. No pleural or pericardial effusions. Visualized upper abdominal organs demonstrate moderate atherosclerotic changes in the abdominal aorta without aneurysm in the visualized portions. Evaluation of the lung parenchyma demonstrates trachea and major airways to be patent. No suspicious lung nodules or masses. Mild right middle lobe and lingular atelectatic changes. IMPRESSION: No acute pathology. No acute pulmonary embolism. No acute aortic dissection.
[2018-12-03] MEDS ORDERED: CEFTRIAXONE 1 GM/D5W RTU 1 GM/50 ML RTUPB IV ONE (21:05)
[2018-12-03] MEDS ORDERED: IPRATROPIUM/ALBUTEROL 0.5-2.5 MG/3 ML AMPUL NEB PRN (21:27)
[2018-12-03] MEDS ORDERED: GUAIFENESIN SYRP 200 MG/10 ML UDC PO PRN (21:27)
[2018-12-03] MEDS ORDERED: GLUCAGON,HUMAN RECOMB 1 MG INJ IM PRN (21:27)
[2018-12-03] MEDS ORDERED: DEXTROSE 50%-WATER 25 GM/50 ML DISP.SYRIN IV PRN ×2 (21:27)
[2018-12-03] MEDS ORDERED: ACETAMINOPHEN 325 MG TABLET PO PRN (21:27)
[2018-12-03] MEDS ORDERED: HYDRALAZINE HCL INJ/PF 20 MG/1 ML SDV IV PRN (21:27)
[2018-12-03] MEDS ORDERED: DEXTROSE 40% GEL 15 GM TUBE PO PRN ×2 (21:27)
[2018-12-03] MEDS ORDERED: MAG HYDROX/AL HYDROX/SIMETH SUSP 30 ML UDCUP PO PRN (21:32)
[2018-12-03] MEDS ORDERED: OXYCODONE-ACETAMINOPHEN 5-325 MG TABLET PO PRN (21:32)
[2018-12-03] MEDS ORDERED: FLUTICASONE NASAL SPRAY 50 MCG/SPRY 120 SPRAY/16 GM NASL SCH (22:00)
[2018-12-03 22:33] LABS: APPEARANCE,URINE CLEAR; BILIRUBIN,URINE NEGATIVE (NEGATIVE); COLOR,URINE YELLOW; GLUCOSE, URINE 150 mg/dL (NEGATIVE); KETONES,URINE TRACE mg/dL (NEGATIVE); LEUKOCYTE ESTERASE,URINE NEGATIVE (NEGATIVE); NITRITE,URINE NEGATIVE (NEGATIVE); PROTEIN,URINE NEGATIVE (NEGATIVE); URINE SPECIFIC GRAVITY 1.028; UROBILINOGEN,URINE NEGATIVE mg/dL (<2.0)
[2018-12-03 22:42] LABS: ADD MANUAL MICROSCOPIC YES
[2018-12-03 22:45] LABS: BACTERIA,URINE 1+ /HPF; WBC,URINE 0-1 /HPF
[2018-12-03] MEDS: CARVEDILOL 3.125 MG TABLET PO SCH (23:17)
[2018-12-03] MEDS: PREDNISONE 20 MG TABLET PO SCH (23:17)
[2018-12-03] MEDS: CHLORPHENIRAMINE MALEATE 4 MG TABLET PO SCH (23:17)
[2018-12-03] MEDS: AZITHROMYCIN 500 MG in DEXTROSE 5%-WATER 250 ML IV SCH (23:18)
[2018-12-03] MEDS: HEPARIN SOD (PORCINE) 5,000 UNIT/ML 1 ML VIAL SUBCUT SCH (23:18)
[2018-12-04] MEDS: IPRATROPIUM/ALBUTEROL 0.5-2.5 MG/3 ML AMPUL NEB SCH ×4 (01:58→20:08)
[2018-12-04] MEDS: CHLORPHENIRAMINE MALEATE 4 MG TABLET PO SCH ×3 (03:43→15:44)
--- NOTE | 2018-12-04 05:11 | PDOC H&P ---
History of Present Illness Admission Date/PCP: 12/03/18 21:39 LETICIA JOHNSON MD Patient complains of: Shortness of breath and cough History of Present Illness: STAN MARTINES is a 58 year old female with an extensive past medical history of coronary artery disease, hypertension, diabetes, oxygen dependent COPD chronic bronchitis, GERD persistent tobacco dependence. She presents with 72 hours of sinus congestion, rhinorrhea, postnasal drip, uncontrolled GERD wheezing, rhonchi and nonproductive cough. In the emergency room she is found to have bilateral upper airway rhonchi and hypomagnesemia. She receives treatment for acute on chronic bronchitis, COPD exacerbation with steroids with minimal improvement. She is referred to the hospitalist for admission. Past Medical History Cardiac Medical History: Reports: Hyperlipidema, Hypertension Pulmonary Medical History: Reports: Asthma, Sleep Apnea Endocrine Medical History: Reports: Diabetes Mellitus Type 2 GI Medical History: Reports: Gastroesophageal Reflux Disease Musculoskeltal Medical History: Reports: Arthritis, Fibromyalgia Psychiatric Medical History: Reports: Depression, Tobacco Dependency Past Surgical History Past Surgical History: Reports: Coronary Artery Bypass Graft Social History Information Source: Patient Smoking Status: Current Every Day Smoker Cigarettes Packs Per Day: 0.5 Number of Years Smokin Frequency of Alcohol Use: None Drugs: None - Advance Directive Resuscitation Status: Full Code Family History Family History: COPD, Hypertension Parental Family History Reviewed: Yes Children Family History Reviewed: Yes Sibling(s) Family History Reviewed.: Yes Medication/Allergy Home Medications: Aspirin [Ecotrin 81 mg EC Tablet] 81 mg PO DAILY 12/03/18 Benzonatate [Tessalon Perles 100 mg Capsule] 100 mg PO ASDIR PRN 12/03/18 Carvedilol [Coreg 12.5 mg Tablet] 12.5 mg PO BID 12/03/18 Cholecalciferol (Vitamin D3) [Vitamin D3 1000 Unit Tablet] 1,000 unit PO DAILY 12/03/18 Cilostazol [Pletal 100 mg Tablet] 100 mg PO BID 12/03/18 Clopidogrel Bisulfate [Plavix] 75 mg PO DAILY 12/03/18 Cyclobenzaprine HCl [Flexeril 10 mg Tablet] 10 mg PO BID 12/03/18 Digoxin [Lanoxin 0.125 mg Tablet] 0.125 mg PO DAILY 12/03/18 Fluticasone/Salmeterol [Advair 250-50 Diskus 14 Dose/Diskus] 1 inh IH Q12H 12/03/18 Furosemide [Lasix 20 mg Tablet] 20 mg PO PRN PRN 12/03/18 Gabapentin [Neurontin] 800 mg PO TID 12/03/18 Hydroxyzine HCl [Atarax 25 mg Tablet] 25 mg PO PRN PRN 12/03/18 Isosorbide Mononitrate [Imdur 30 mg Tablet.er] 30 mg PO DAILY 12/03/18 Losartan Potassium [Cozaar] 25 mg PO DAILY 12/03/18 Metformin/Blood Sugar Diagnost [Dm2 Kit] 1,000 mg PO BID 12/03/18 Naproxen [Naprosyn 375 Mg Tablet] 500 mg PO BID 12/03/18 Omeprazole 20 cap PO DAILY 12/03/18 Ondansetron [Ondansetron Odt] 8 mg PO PRN PRN 12/03/18 Ropinirole HCl 0.5 mg PO DAILY 12/03/18 Tiotropium Norris [Spiriva Handihaler 5 Cap/Kit (18 Mcg/Cap)] 1 kit IH PRN PRN 12/03/18 Tramadol HCl [Ultram 50 mg Tablet] 50 mg PO Q6 PRN 12/03/18 Zolpidem Tartrate 10 mg PO PRN PRN 12/03/18 Allergies/Adverse Reactions: lisinopril Allergy (Verified 05/29/18 14:58) Review of Systems Constitutional: PRESENT: as per HPI, anorexia, fatigue. ABSENT: fever(s), [place] Eyes: ABSENT: visual disturbances Ears: ABSENT: hearing changes Nose, Mouth, and Throat: PRESENT: as per HPI. ABSENT: headache(s), mouth pain, sore throat Cardiovascular: ABSENT: chest pain, dyspnea on exertion, edema, orthropnea, palpitations Respiratory: PRESENT: as per HPI, cough, dyspnea. ABSENT: hemoptysis, sputum Gastrointestinal: ABSENT: abdominal pain, constipation, diarrhea, hematemesis, hematochezia, nausea, vomiting Genitourinary: ABSENT: dysuria, hematuria Musculoskeletal: ABSENT: joint swelling Integumentary: ABSENT: rash, wounds Neurological: ABSENT: abnormal gait, abnormal speech, confusion, dizziness, focal weakness, syncope Psychiatric: ABSENT: anxiety, depression, homidical ideation, suicidal ideation Endocrine: ABSENT: cold intolerance, heat intolerance, polydipsia, polyuria Hematologic/Lymphatic: ABSENT: easy bleeding, easy bruising Physical Exam Vital Signs: Temp Pulse Resp BP Pulse Ox 98.2 F 95 19 149/82 H 97 12/04/18 03:58 12/04/18 03:58 12/04/18 03:58 12/04/18 03:58 12/04/18 03:58 Intake & Output 12/02/18 12/03/18 12/04/18 11:59 11:59 11:59 Intake Total 2722 Balance 2722 Weight 59.5 kg General appearance: PRESENT: cooperative, mild distress, thin, well-developed, well-nourished, other - Appears older than stated age Head exam: PRESENT: atraumatic, normocephalic Eye exam: PRESENT: conjunctiva pink, EOMI, PERRLA. ABSENT: scleral icterus Ear exam: PRESENT: normal external ear exam Mouth exam: PRESENT: moist, tongue midline Neck exam: ABSENT: carotid bruit, JVD, lymphadenopathy, thyromegaly Respiratory exam: PRESENT: accessory muscle use, crackles, decreased breath sounds, prolonged expiratory phas, rales, retraction, rhonchi, symmetrical, tachypnea Cardiovascular exam: PRESENT: RRR. ABSENT: diastolic murmur, rubs, systolic murmur Pulses: PRESENT: normal carotid pulses Vascular exam: PRESENT: normal capillary refill GI/Abdominal exam: PRESENT: normal bowel sounds, soft. ABSENT: distended, guarding, mass, organolmegaly, rebound, tenderness Rectal exam: PRESENT: deferred Extremities exam: PRESENT: full ROM. ABSENT: calf tenderness, clubbing, pedal edema Neurological exam: PRESENT: alert, awake, oriented to person, oriented to place, oriented to time, oriented to situation, CN II-XII grossly intact. ABSENT: motor sensory deficit Psychiatric exam: PRESENT: appropriate affect, normal mood. ABSENT: homicidal ideation, suicidal ideation Skin exam: PRESENT: dry, intact, warm. ABSENT: cyanosis, rash Results Laboratory Results: 12/03/18 15:10 12/03/18 17:58 12/03/18 12/03/18 12/03/18 15:10 15:10 16:00 WBC 10.2 RBC 4.06 Hgb 12.0 Hct 36.2 MCV 89 MCH 29.6 MCHC 33.2 RDW 13.9 Plt Count 326 Seg Neutrophils % 70.6 VBG pH VBG pCO2 VBG HCO3 VBG Base Excess Sodium Cancelled Potassium Cancelled Chloride Cancelled Carbon Dioxide Cancelled Anion Gap Cancelled BUN Cancelled Creatinine Cancelled Est GFR ( Amer) Cancelled Est GFR (Non-Af Amer) Cancelled Glucose Cancelled Lactic Acid 1.2 Calcium Cancelled Magnesium Cancelled Total Bilirubin Cancelled AST Cancelled Alkaline Phosphatase Cancelled Total Protein Cancelled Albumin Cancelled Urine Color Urine Appearance Urine pH Ur Specific [place] Urine Protein Urine Glucose (UA) Urine Ketones Urine Blood Urine Nitrite Ur Leukocyte Esterase Ur Squamous Epith Cells 12/03/18 12/03/18 12/03/18 17:58 17:58 22:14 WBC RBC Hgb Hct MCV MCH MCHC RDW Plt Count Seg Neutrophils % VBG pH 7.36 VBG pCO2 55.4 VBG HCO3 30.5 VBG Base Excess 3.5 Sodium 141.8 Potassium 4.8 Chloride 102 Carbon Dioxide 27 Anion Gap 13 BUN 18 Creatinine 0.98 Est GFR ( Amer) > 60 Est GFR (Non-Af Amer) Glucose 171 H Lactic Acid Calcium 10.8 H Magnesium 1.4 L Total Bilirubin 0.5 AST 20 Alkaline Phosphatase 124 Total Protein 8.2 Albumin 4.8 Urine Color YELLOW Urine Appearance CLEAR Urine pH 6.0 Ur Specific [place] 1.028 Urine Protein NEGATIVE Urine Glucose (UA) 150 H Urine Ketones TRACE H Urine Blood NEGATIVE Urine Nitrite NEGATIVE Ur Leukocyte Esterase NEGATIVE Ur Squamous Epith Cells MODERATE 12/03/18 12/03/18 17:58 17:58 Troponin I < 0.012 NT-Pro-B Natriuret Pep 333 Impressions: Chest X-Ray 12/03/18 15:49 IMPRESSION: Chronic lung changes with no acute cardiopulmonary findings. Chest/Abdomen CTA 12/03/18 18:41 IMPRESSION: No acute pathology. No acute pulmonary embolism. No acute aortic dissection. Assessment and Plan - Diagnosis (1) Acute exacerbation of chronic bronchitis Is this a current diagnosis for this admission?: Yes Plan: Versus early pneumonia, prednisone, Flonase, chlorpheniramine, aggressive pulmonary toilet, albuterol and Atrovent, empiric antibiotics ordered. Flutter valve encouraged. (2) COPD exacerbation Is this a current diagnosis for this admission?: Yes Plan: Aggressive pulmonary toilet, prednisone, supplemental oxygen (3) Sinusitis Is this a current diagnosis for this admission?: Yes Plan: Flonase, empiric antibiotics (4) Diabetes Is this a current diagnosis for this admission?: Yes Plan: Complicated by steroid requirement. Arnold ordered - Time Time Spent with patient: 25-34 minutes - Inpatient Certification Medical Necessity: Need Close Monitoring Due to Risk of Patient Decompensation
[2018-12-04] MEDS ORDERED: MAGNESIUM HYDROXIDE SUSP 30 ML UDCUP ONE (05:16)
[2018-12-04] MEDS ORDERED: ONDANSETRON HCL INJ/PF 4 MG/2 ML SDV ONE (05:16)
[2018-12-04] MEDS ORDERED: ONDANSETRON 4 MG TAB.RAPDIS PO PRN (05:19)
[2018-12-04] MEDS: HEPARIN SOD (PORCINE) 5,000 UNIT/ML 1 ML VIAL SUBCUT SCH ×3 (05:21→21:19)
[2018-12-04] MEDS ORDERED: MAGNESIUM HYDROXIDE SUSP 30 ML UDCUP PO ONE (05:30)
[2018-12-04] MEDS ORDERED: ONDANSETRON HCL INJ/PF 4 MG/2 ML SDV IV ONE (05:30)
[2018-12-04 06:28] LABS: ABSOLUTE MONOCYTES (AUTO) 0.1 10^3/uL (0.1-1.4); ABSOLUTE NEUT (AUTO) 4.9 10^3/uL (1.7-8.2); BASOPHILS % (AUTO) 0.1 % (0-2); HEMATOCRIT 33.4 % (36.0-47.0); LYMPHOCYTES % (AUTO) 16.7 % (13-45); MEAN CORPUSCULAR HEMOGLOBIN 29.3 pg (27.0-33.4); MEAN CORPUSCULAR VOLUME 89 fl (80-97); MONOCYTES % (AUTO) 2.1 % (3-13); PLATELET COUNT 272 10^3/uL (150-450); RED BLOOD COUNT 3.76 10^6/uL (3.72-5.28); RED CELL DISTRIBUTION WIDTH 14.3 % (11.5-14.0); SEGMENTED NEUTROPHILS % (AUTO) 81.1 % (42-78); TOTAL CELLS COUNTED % (AUTO) 100 %; WHITE BLOOD COUNT 6.1 10^3/uL (4.0-10.5)
[2018-12-04 06:52] LABS: ANION GAP 12 (5-19); BLOOD UREA NITROGEN 14 mg/dL (7-20); CALCIUM 10.1 mg/dL (8.4-10.2); CARBON DIOXIDE 24 mmol/L (22-30); CHLORIDE 104 mmol/L (98-107); GLUCOSE 181 mg/dL (75-110); POTASSIUM 5.2 mmol/L (3.6-5.0)
[2018-12-04] MEDS: INSULIN LISPRO 100 UNIT/ML 3 ML VIAL SUBCUT SCH ×3 (08:39→18:01)
--- NOTE | 2018-12-04 08:48 | EKG REPORT ---
SEVERITY:- ABNORMAL ECG - SINUS TACHYCARDIA NONSPECIFIC REPOL ABNORMALITY, DIFFUSE LEADS : Confirmed by: Yuki Covarrubias MD 04-Dec-2018 08:47:37
[2018-12-04] MEDS ORDERED: CLOPIDOGREL BISULFATE 75 MG TABLET PO SCH (10:00)
[2018-12-04] MEDS: PREDNISONE 20 MG TABLET PO SCH (10:15)
[2018-12-04] MEDS: CEFTRIAXONE 1 GM/D5W RTU 1 GM/50 ML RTUPB IV SCH (10:15)
[2018-12-04] MEDS: CARVEDILOL 3.125 MG TABLET PO SCH (10:16)
[2018-12-04] MEDS: FLUTICASONE NASAL SPRAY 50 MCG/SPRY 120 SPRAY/16 GM NASL SCH ×2 (10:16→21:19)
[2018-12-04] MEDS ORDERED: FUROSEMIDE 20 MG TABLET PO PRN (10:56)
[2018-12-04] MEDS ORDERED: (PENDING PHARMACY ID) (Zolpidem Tartrate [Zolpidem Tartrate] 10 MG) PO PRN (10:56)
[2018-12-04] MEDS ORDERED: (PENDING PHARMACY ID) (Hydroxyzine Hcl [Atarax 25 Mg Tablet] 25 MG) PO PRN (10:56)
[2018-12-04] MEDS ORDERED: TRAMADOL HCL 50 MG TABLET PO PRN (10:56)
[2018-12-04] MEDS: BENZONATATE 100 MG CAPSULE PO SCH ×2 (13:32→17:55)
[2018-12-04] MEDS: GABAPENTIN 400 MG CAPSULE PO SCH ×2 (13:32→17:55)
[2018-12-04] MEDS: CYCLOBENZAPRINE HCL 10 MG TABLET PO SCH ×2 (13:32→17:55)
[2018-12-04] MEDS: METHYLPREDNISOLONE INJ 40 MG/1 ML SDV IV SCH ×2 (13:32→21:19)
[2018-12-04] MEDS: NICOTINE 21 MG/24 HR PATCH.TD24 TD SCH (13:32)
[2018-12-04] MEDS: DIGOXIN 0.125 MG TABLET PO SCH (13:34)
[2018-12-04] MEDS: HYDROXYZINE PAMOATE 25 MG CAPSULE PO PRN ×2 (15:44→21:19)
[2018-12-04] MEDS: OXYCODONE-ACETAMINOPHEN 5-325 MG TABLET PO PRN ×2 (15:51→20:24)
[2018-12-04] MEDS: OXYCODONE HCL IR 5 MG TABLET PO PRN ×2 (15:52→20:24)
--- NOTE | 2018-12-04 17:11 | PDOC PROGRESS REPORT ---
Subjective Progress Note for:: 12/04/18 Subjective:: This is a 58-year-old female with a PMH of coronary artery disease, hypertension, diabetes, oxygen dependent COPD, chronic bronchitis, GERD persistent tobacco dependence and fibromyalgia who presented with worsening cough, wheezing and shortness of breath. She was admitted for COPD exacerbation. No acute event overnight. This morning, she says she feels a little better but is definitely not at her baseline yet. On examination, she has significant bilateral wheezing and rhonchi. Reason For Visit: COPD EXACERBATION,ACUTE BRONCHITIS,HYPERKALEMIA, Physical Exam Vital Signs: Temp Pulse Resp BP Pulse Ox 98.7 F 91 16 182/86 H 97 12/04/18 15:37 12/04/18 15:37 12/04/18 15:37 12/04/18 15:37 12/04/18 15:37 Intake & Output 12/03/18 12/04/18 12/05/18 06:59 06:59 06:59 Intake Total 2944 494 Balance 2944 494 Weight 131 lb 2.801 oz General appearance: PRESENT: no acute distress, well-developed, well-nourished Head exam: PRESENT: atraumatic, normocephalic Eye exam: PRESENT: conjunctiva pink, EOMI, PERRLA. ABSENT: scleral icterus Ear exam: PRESENT: normal external ear exam Mouth exam: PRESENT: moist, tongue midline Neck exam: ABSENT: carotid bruit, JVD, lymphadenopathy, thyromegaly Respiratory exam: PRESENT: rhonchi, wheezes. ABSENT: rales Cardiovascular exam: PRESENT: RRR. ABSENT: diastolic murmur, rubs, systolic murmur Pulses: PRESENT: normal dorsalis pedis pul GI/Abdominal exam: PRESENT: normal bowel sounds, soft. ABSENT: distended, guarding, mass, organolmegaly, rebound, tenderness Rectal exam: PRESENT: deferred Extremities exam: PRESENT: full ROM. ABSENT: calf tenderness, clubbing, pedal edema Neurological exam: PRESENT: alert, awake, oriented to person, oriented to place, oriented to time, oriented to situation, CN II-XII grossly intact. ABSENT: motor sensory deficit Results Laboratory Results: 12/04/18 06:10 12/04/18 06:10 12/03/18 12/03/18 12/03/18 17:58 17:58 22:14 WBC RBC Hgb Hct MCV MCH MCHC RDW Plt Count Seg Neutrophils % VBG pH 7.36 VBG pCO2 55.4 VBG HCO3 30.5 VBG Base Excess 3.5 Sodium 141.8 Potassium 4.8 Chloride 102 Carbon Dioxide 27 Anion Gap 13 BUN 18 Creatinine 0.98 Est GFR ( Amer) > 60 Glucose 171 H Calcium 10.8 H Magnesium 1.4 L Total Bilirubin 0.5 AST 20 Alkaline Phosphatase 124 Total Protein 8.2 Albumin 4.8 Urine Color YELLOW Urine Appearance CLEAR Urine pH 6.0 Ur Specific [place] 1.028 Urine Protein NEGATIVE Urine Glucose (UA) 150 H Urine Ketones TRACE H Urine Blood NEGATIVE Urine Nitrite NEGATIVE Ur Leukocyte Esterase NEGATIVE Ur Squamous Epith Cells MODERATE 12/04/18 12/04/18 06:10 06:10 WBC 6.1 RBC 3.76 Hgb 11.0 L Hct 33.4 L MCV 89 MCH 29.3 MCHC 33.0 RDW 14.3 H Plt Count 272 Seg Neutrophils % 81.1 H VBG pH VBG pCO2 VBG HCO3 VBG Base Excess Sodium 140.4 Potassium 5.2 H Chloride 104 Carbon Dioxide 24 Anion Gap 12 BUN 14 Creatinine 0.75 Est GFR ( Amer) > 60 Glucose 181 H Calcium 10.1 Magnesium Total Bilirubin AST Alkaline Phosphatase Total Protein Albumin Urine Color Urine Appearance Urine pH Ur Specific [place] Urine Protein Urine Glucose (UA) Urine Ketones Urine Blood Urine Nitrite Ur Leukocyte Esterase Ur Squamous Epith Cells 12/03/18 12/03/18 17:58 17:58 Troponin I < 0.012 NT-Pro-B Natriuret Pep 333 Impressions: Chest X-Ray 12/03/18 15:49 IMPRESSION: Chronic lung changes with no acute cardiopulmonary findings. Chest/Abdomen CTA 12/03/18 18:41 IMPRESSION: No acute pathology. No acute pulmonary embolism. No acute aortic dissection. Assessment and Plan - Diagnosis (1) Acute and chronic respiratory failure with hypoxia Is this a current diagnosis for this admission?: Yes Plan: Secondary to COPD exacerbation. (2) COPD exacerbation Is this a current diagnosis for this admission?: Yes Plan: Switch prednisone to IV Solu-Medrol. Continue scheduled breathing treatments. (3) CAD (coronary artery disease) Is this a current diagnosis for this admission?: Yes Plan: Stable. Continue home meds. (4) Fibromyalgia Is this a current diagnosis for this admission?: Yes Plan: Resume home meds. - Time Time Spent with patient: 25-34 minutes
[2018-12-04] MEDS: CILOSTAZOL 100 MG TABLET PO SCH (17:55)
[2018-12-04] MEDS ORDERED: NAPROXEN 375 MG TABLET PO SCH (18:00)
[2018-12-04] MEDS: ONDANSETRON HCL 8 MG TABLET PO PRN (20:24)
[2018-12-04] MEDS ORDERED: ZOLPIDEM TARTRATE 5 MG TABLET PO PRN (21:00)
[2018-12-04] MEDS: CARVEDILOL 12.5 MG TABLET PO SCH (21:19)
[2018-12-04] MEDS: AZITHROMYCIN 500 MG in DEXTROSE 5%-WATER 250 ML IV SCH (21:20)
[2018-12-05] MEDS: OXYCODONE HCL IR 5 MG TABLET PO PRN ×3 (00:05→10:26)
[2018-12-05] MEDS: OXYCODONE-ACETAMINOPHEN 5-325 MG TABLET PO PRN ×3 (00:05→10:25)
[2018-12-05] MEDS: IPRATROPIUM/ALBUTEROL 0.5-2.5 MG/3 ML AMPUL NEB SCH ×2 (02:15→08:21)
[2018-12-05] MEDS: METHYLPREDNISOLONE INJ 40 MG/1 ML SDV IV SCH (05:13)
[2018-12-05] MEDS: ONDANSETRON HCL 8 MG TABLET PO PRN (05:13)
[2018-12-05] MEDS: HEPARIN SOD (PORCINE) 5,000 UNIT/ML 1 ML VIAL SUBCUT SCH (05:13)
[2018-12-05] MEDS ORDERED: CHOLECALCIFEROL (D3) 1,000 UNIT (25 MCG) TABLET PO SCH (10:00)
[2018-12-05] MEDS ORDERED: CLOPIDOGREL BISULFATE 75 MG TABLET PO SCH (10:00)
[2018-12-05] MEDS ORDERED: ASPIRIN 81 MG TABLET, ENT COATED PO SCH (10:00)
[2018-12-05] MEDS ORDERED: ISOSORBIDE MONONITRATE 30 MG TAB.ER.24H PO SCH (10:00)
[2018-12-05] MEDS ORDERED: LOSARTAN POTASSIUM 25 MG TABLET PO SCH (10:00)
[2018-12-05] MEDS: NICOTINE 21 MG/24 HR PATCH.TD24 TD SCH (10:18)
[2018-12-05] MEDS: BENZONATATE 100 MG CAPSULE PO SCH (10:18)
[2018-12-05] MEDS: GABAPENTIN 400 MG CAPSULE PO SCH (10:18)
[2018-12-05] MEDS: INSULIN LISPRO 100 UNIT/ML 3 ML VIAL SUBCUT SCH ×2 (10:19→12:29)
[2018-12-05] MEDS: DIGOXIN 0.125 MG TABLET PO SCH (10:19)
[2018-12-05] MEDS: CARVEDILOL 12.5 MG TABLET PO SCH (10:19)
[2018-12-05] MEDS: CEFTRIAXONE 1 GM/D5W RTU 1 GM/50 ML RTUPB IV SCH (10:19)
[2018-12-05] MEDS: CYCLOBENZAPRINE HCL 10 MG TABLET PO SCH (10:19)
[2018-12-05] MEDS: FLUTICASONE NASAL SPRAY 50 MCG/SPRY 120 SPRAY/16 GM NASL SCH (10:20)
[2018-12-05 12:09] VITALS: BP 144/66
[2018-12-05] MEDS: CILOSTAZOL 100 MG TABLET PO SCH (12:29)
--- NOTE | 2018-12-05 18:18 | PDOC DISCHARGE SUMMARY ---
General - Admit/Disc Date/PCP Admission Date/Primary Care Provider: 12/03/18 21:39 LETICIA JOHNSON MD Discharge Date: 12/05/18 - Discharge Diagnosis (1) Acute and chronic respiratory failure with hypoxia Is this a current diagnosis for this admission?: Yes (2) COPD exacerbation Is this a current diagnosis for this admission?: Yes (3) CAD (coronary artery disease) Is this a current diagnosis for this admission?: Yes (4) Fibromyalgia Is this a current diagnosis for this admission?: Yes - Additional Information Resuscitation Status: Full Code Discharge Activity: Activity As Tolerated, Balance Activity w/Rest Prescriptions: Fluticasone/Salmeterol [Advair 250-50 Diskus 14 Dose/Diskus] 1 inh IH Q12H #1 inhaler Prednisone [Deltasone] 20 mg PO BID 5 Days #10 tablet Home Medications: Aspirin [Ecotrin 81 mg EC Tablet] 162 mg PO DAILY 12/03/18 Carvedilol [Coreg 12.5 mg Tablet] 12.5 mg PO BID 12/03/18 Cholecalciferol (Vitamin D3) [Vitamin D3 1000 Unit Tablet] 1,000 unit PO DAILY 12/03/18 Cilostazol [Pletal 100 mg Tablet] 100 mg PO BID 12/03/18 Clopidogrel Bisulfate [Plavix] 75 mg PO DAILY 12/03/18 Cyclobenzaprine HCl [Flexeril 10 mg Tablet] 10 mg PO BID 12/03/18 Digoxin [Lanoxin 0.125 mg Tablet] 0.125 mg PO DAILY 12/03/18 Gabapentin [Neurontin] 800 mg PO TID 12/03/18 Hydroxyzine HCl [Atarax 25 mg Tablet] 25 mg PO QIDP PRN 12/03/18 Losartan Potassium [Cozaar] 25 mg PO DAILY 12/03/18 Omeprazole 20 cap PO DAILY 12/03/18 Ondansetron [Ondansetron Odt] 8 mg PO Q6HP PRN 12/03/18 Ropinirole HCl 0.5 mg PO DAILY 12/03/18 Zolpidem Tartrate 10 mg PO PRN PRN 12/03/18 Albuterol Sulfate [Proair HFA Inhalation Aerosol 8.5 gm MDI] 2 puff IH Q4HP PRN 12/04/18 Lamotrigine 100 mg PO DAILY 12/04/18 Oxycodone HCl/Acetaminophen [Percocet 10-325 mg Tablet] 1 each PO Q4HP PRN 12/04/18 Fluticasone/Salmeterol [Advair 250-50 Diskus 14 Dose/Diskus] 1 inh IH Q12H #1 inhaler 12/05/18 Isosorbide Mononitrate [Imdur 30 mg Tablet.er] 30 mg PO DAILY 12/05/18 Prednisone [Deltasone] 20 mg PO BID 5 Days #10 tablet 12/05/18 History of Present Illness History of Present Illness: Admitting hospitalist's H&P: STAN MARTINES is a 58 year old female with an extensive past medical history of coronary artery disease, hypertension, diabetes, oxygen dependent COPD chronic bronchitis, GERD persistent tobacco dependence. She presents with 72 hours of sinus congestion, rhinorrhea, postnasal drip, uncontrolled GERD whe ezing, rhonchi and nonproductive cough. In the emergency room she is found to have bilateral upper airway rhonchi and hypomagnesemia. She receives treatment for acute on chronic bronchitis, COPD exacerbation with steroids with minimal improvement. She is referred to the hospitalist for admission. Hospital Course Hospital Course: This is a 58-year-old female with a PMH of coronary artery disease, hypertension, diabetes, oxygen dependent COPD, chronic bronchitis, GERD persistent tobacco dependence and fibromyalgia who presented with worsening cough, wheezing and shortness of breath. She was admitted for COPD exacerbation. He was started on IV steroids and scheduled breathing treatments. She did promptly improve and eventually returned to her baseline. She will be discharged on 5 more days of prednisone. She will also be started on Advair. Physical Exam Vital Signs: Temp Pulse Resp BP Pulse Ox 98.2 F 89 20 144/66 H 100 12/05/18 12:07 12/05/18 12:07 12/05/18 12:07 12/05/18 12:07 12/05/18 12:07 Intake & Output 12/04/18 12/05/18 12/06/18 06:59 06:59 06:59 Intake Total 2944 1314 Balance 2944 1314 Weight 131 lb 2.801 oz 132 lb 7.965 oz General appearance: PRESENT: no acute distress, well-developed, well-nourished Head exam: PRESENT: atraumatic, normocephalic Eye exam: PRESENT: conjunctiva pink, EOMI, PERRLA. ABSENT: scleral icterus Ear exam: PRESENT: normal external ear exam Mouth exam: PRESENT: moist, tongue midline Neck exam: ABSENT: carotid bruit, JVD, lymphadenopathy, thyromegaly Respiratory exam: PRESENT: clear to auscultation chauncey. ABSENT: rales, rhonchi, wheezes Cardiovascular exam: PRESENT: RRR. ABSENT: diastolic murmur, rubs, systolic murmur Pulses: PRESENT: normal dorsalis pedis pul GI/Abdominal exam: PRESENT: normal bowel sounds, soft. ABSENT: distended, guarding, mass, organolmegaly, rebound, tenderness Rectal exam: PRESENT: deferred Extremities exam: PRESENT: full ROM. ABSENT: calf tenderness, clubbing, pedal edema Results Laboratory Results: 12/04/18 06:10 12/05/18 10:39 12/05/18 10:39 Potassium 5.0 12/03/18 22:14 Clean Catch Midstream Urine Culture - Final Group B Beta Streptococcus Escherichia Coli 12/03/18 12/03/18 17:58 17:58 Troponin I < 0.012 NT-Pro-B Natriuret Pep 333 Impressions: Chest X-Ray 12/03/18 15:49 IMPRESSION: Chronic lung changes with no acute cardiopulmonary findings. Chest/Abdomen CTA 12/03/18 18:41 IMPRESSION: No acute pathology. No acute pulmonary embolism. No acute aortic dissection. Qualifiers - * PATIENT BEING DISCHARGED WITH ANY OF THE FOLLOWING DIAGNOSIS: No Acute Heart Failure - Is this a Heart Failure Patient?: No
== END 2018-12-05 12:46 | disposition home or self-care (01) ==
LOC: ER 15:44 → OBSVTOIN 21:39 → INTOOBSV 21:39 → EH 21:39 → 4S 22:52
PROVIDERS: ADMIT Internal Medicine; ATTEND Internal Medicine
DX: J96.21 Acute and chronic respiratory failure with hypoxia (principal); J20.9 Acute bronchitis, unspecified; J44.1 Chronic obstructive pulmonary disease with (acute) exacerbation; J44.0 Chronic obstructive pulmonary disease with (acute) lower respiratory infection; I25.10 Atherosclerotic heart disease of native coronary artery without angina pectoris; M79.7 Fibromyalgia; E11.9 Type 2 diabetes mellitus without complications; K21.9 Gastro-esophageal reflux disease without esophagitis; E83.42 Hypomagnesemia; F17.210 Nicotine dependence, cigarettes, uncomplicated; R63.0 Anorexia; J32.9 Chronic sinusitis, unspecified; R53.81 Other malaise; R00.0 Tachycardia, unspecified; I11.0 Hypertensive heart disease with heart failure; I50.9 Heart failure, unspecified; I48.91 Unspecified atrial fibrillation; R82.79 Other abnormal findings on microbiological examination of urine; Z79.82 Long term (current) use of aspirin; Z79.899 Other long term (current) drug therapy; Z79.02 Long term (current) use of antithrombotics/antiplatelets; Z99.81 Dependence on supplemental oxygen; Z95.1 Presence of aortocoronary bypass graft; Z79.84 Long term (current) use of oral hypoglycemic drugs; Z95.4 Presence of other heart-valve replacement; Z79.51 Long term (current) use of inhaled steroids
CPT/HCPCS: 93005; 94640 ×4; 99285; 96361; 96375; 96365; 96366; 96367; 36415 ×3; 87040; 87070; 87086; 87205; 82962 ×3; 83735; 84132; 85025 ×2; 85610; 87088; 80048; 80053; 81001; 84484; 87186; 82803; 83605; 83880; 71045; 71275; 94799; 93010; 94667; 94668; G0378 ×4; J3490 ×25; J1644 ×3; S0119 ×3; J1815 ×2; J2920 ×2; J2930; J3475; J7512 ×2; J2405 ×2; J7060 ×2; J7030; J0456 ×2; J0696 ×3; J7620 ×3

== ENCOUNTER → 2019-03-04 | Outpatient (CLI) | payer MEDICAID ==
--- NOTE | 2019-03-04 14:34 | RADIOLOGY REPORT (SQ) ---
EXAM DESCRIPTION: UGI SERIES COMPLETED DATE/TIME: 03/04/2019 9:28 am REASON FOR STUDY: R10.13 EPIGASTRIC PAIN, R13.10 DYSPHAGIA, UNSPECIFIED R10.13 EPIGASTRIC PAIN R13. 10 DYSPHAGIA, UNSPECIFIED COMPARISON: None. TECHNIQUE: Under fluoroscopic guidance, patient ingested effervescent granules followed by thick and thin barium. Fluoroscopic spot images and routine radiographic images acquired and stored on PACS. 12 MM BARIUM TABLET GIVEN: Yes. No significant delay in passage. LIMITATIONS: None. FLUOROSCOPY TIME: FLUORO TIME: 2.6 minutes of fluoroscopy was used. 17 images saved to PACS. FINDINGS: NEUROMUSCULAR COORDINATION OF SWALLOW: Normal. No aspiration. Mild cricopharyngeal hyper trophy. ESOPHAGEAL MOTILITY: Normal peristalsis. No esophageal spasm. ESOPHAGEAL MUCOSA: Normal mucosa without masses or ulceration. GASTRO-ESOPHAGEAL JUNCTION: Small hiatal hernia with mild gastroesophageal reflux. 12 mm barium tabl et passed through the GE junction without significant delay. STOMACH: Prominent gastric mucosal folds without masses or ulcerations. GASTRIC OUTLET: No delay in emptying. Normal pylorus. DUODENAL BULB: Normal distention. No spasm or ulceration. DUODENUM: Mucosa normal. No extrinsic masses or malrotation. PROXIMAL SMALL BOWEL: Mucosa normal. No extrinsic masses or malrotation. NON-GI TRACT STRUCTURES: No significant finding. OTHER: No other significant finding. IMPRESSION: 1. SMALL SLIDING HIATAL HERNIA WITH MILD GASTROESOPHAGEAL REFLUX. 2. PROMINENT GASTRIC MUCOSAL FOLDS WITHOUT EVIDENCE OF ULCERATION OR MASS. COMMENT: Quality ID [id number]: Final reports for procedures using fluoroscopy that document radiation exp osure indices, or exposure time and number of fluorographic images (if radiation exposure indices are not available) TECHNICAL DOCUMENTATION: JOB ID: [id number] [employer]- All Rights Reserved Reading location - IP/workstation name: [email or web address]
== END ==
LOC: RAD 08:35
PROVIDERS: ATTEND Internal Medicine Gastroenterology
DX: R10.13 Epigastric pain (principal); R13.10 Dysphagia, unspecified
CPT/HCPCS: 74247

== ENCOUNTER 2020-03-13 18:50 | Inpatient (IN) | payer MEDICAID ==
[2020-03-13] MEDS ORDERED: MORPHINE SULFATE 10 MG/ML INJ IV ONE (19:00)
--- NOTE | 2020-03-13 19:03 | ER Document Report ---
ED Medical Screen (RME) - General Chief Complaint: Chest Pain Stated Complaint: CHEST PAIN Time Seen by Provider: 03/13/20 18:59 Primary Care Provider: LETICIA JOHNSON MD [Primary Care Provider] - Follow up as needed Mode of Arrival: Medic Information source: Patient Notes: 59-year-old female presented to ED for chest pain that is pretty significant. She was brought in by EMS. She had artificial artery replaced in her right leg on March 01 she was released from the hospital on the . She is on Plavix 75 mg. She states the left chest pain radiates to the left. I have ordered a CTA chest pain protocol was already started and I have ordered a dose of IV morphine for her pain. I have spoken with Dr. Coleman concerning what of done and she will be seen by another provider. I have greeted and performed a rapid initial assessment of this patient. A comprehensive ED assessment and evaluation of the patient, analysis of test results and completion of medical decision making process will be conducted by an additional ED providers. TRAVEL OUTSIDE OF THE [place] IN LAST 30 DAYS: No - Related Data Allergies/Adverse Reactions: lisinopril Allergy (Verified 05/29/18 14:58) Past Medical History - Past Medical History Cardiac Medical History: Reports: Hx Hypercholesterolemia, Hx Hypertension Pulmonary Medical History: Reports: Hx Asthma, Hx Sleep Apnea Endocrine Medical History: Reports: Hx Diabetes Mellitus Type 2 Renal/ Medical History: Denies: Hx Peritoneal Dialysis GI Medical History: Reports: Hx Gastroesophageal Reflux Disease Musculoskeltal Medical History: Reports Hx Arthritis, Reports Hx Fibromyalgia Psychiatric Medical History: Reports: Hx Depression Past Surgical History: Reports: Hx Cardiac Surgery - CABG, Hx Coronary Artery Bypass Graft Doctor's Discharge - Discharge Referrals: LETICIA JOHNSON MD [Primary Care Provider] - Follow up as needed
[2020-03-13 19:12] LABS: ABSOLUTE EOSINOPHILS # (AUTO) 0.2 10^3/uL (0.0-0.6); ABSOLUTE LYMPHOCYTES (AUTO) 2.1 10^3/uL (0.5-4.7); ABSOLUTE MONOCYTES (AUTO) 0.5 10^3/uL (0.1-1.4); ABSOLUTE NEUT (AUTO) 8.2 10^3/uL (1.7-8.2); BASOPHILS % (AUTO) 0.4 % (0-2); EOSINOPHILS % (AUTO) 1.9 % (0-6); HEMATOCRIT 33.9 % (36.0-47.0); HEMOGLOBIN 11.1 g/dL (12.0-15.5); LYMPHOCYTES % (AUTO) 19.3 % (13-45); MEAN CORPUSCULAR HEMOGLOBIN 29.7 pg (27.0-33.4); MEAN CORPUSCULAR HGB CONC 32.9 g/dL (32.0-36.0); MEAN CORPUSCULAR VOLUME 91 fl (80-97); MONOCYTES % (AUTO) 4.8 % (3-13); PLATELET COUNT 333 10^3/uL (150-450); RED BLOOD COUNT 3.75 10^6/uL (3.72-5.28); RED CELL DISTRIBUTION WIDTH 12.6 % (11.5-14.0); SEGMENTED NEUTROPHILS % (AUTO) 73.6 % (42-78); TOTAL CELLS COUNTED % (AUTO) 100 %; WHITE BLOOD COUNT 11.1 10^3/uL (4.0-10.5)
[2020-03-13 19:35] LABS: ALBUMIN 3.7 g/dL (3.5-5.0); ALKALINE PHOSPHATASE 161 U/L (38-126); ANION GAP 8 (5-19); ASPARTATE AMINO TRANSFERASE 18 U/L (14-36); BILIRUBIN,DIRECT 0.2 mg/dL (0.0-0.4); BILIRUBIN,TOTAL 0.4 mg/dL (0.2-1.3); BLOOD UREA NITROGEN 19 mg/dL (7-20); CALCIUM 9.9 mg/dL (8.4-10.2); CARBON DIOXIDE 27 mmol/L (22-30); CHLORIDE 99 mmol/L (98-107); CREATINE KINASE 25 U/L (30-135); GLUCOSE 322 mg/dL (75-110); POTASSIUM 4.5 mmol/L (3.6-5.0); TOTAL PROTEIN 6.6 g/dL (6.3-8.2)
--- NOTE | 2020-03-13 19:39 | RADIOLOGY REPORT (SQ) ---
EXAM DESCRIPTION: CHEST SINGLE VIEW IMAGES COMPLETED DATE/TIME: 03/13/2020 7:06 pm REASON FOR STUDY: Chest Pain COMPARISON: None. EXAM PARAMETERS: NUMBER OF VIEWS: One view. TECHNIQUE: Single frontal radiographic view of the chest acquired. RADIATION DOSE: NA LIMITATIONS: None. FINDINGS: LUNGS AND PLEURA: No opacities, masses or pneumothorax. No pleural effusion. MEDIASTINUM AND HILAR STRUCTURES: No masses. Contour normal. HEART AND VASCULAR STRUCTURES: Heart normal in size. Normal vasculature. BONES: No acute findings. HARDWARE: Prior anterior median sternotomy and valvular replacement. OTHER: No other significant finding. IMPRESSION: 1. NO ACUTE RADIOGRAPHIC FINDING IN THE CHEST. TECHNICAL DOCUMENTATION: JOB ID: [id number] [employer]- All Rights Reserved Reading location - IP/workstation name: [email or web address]
[2020-03-13 19:46] LABS: CREATINE KINASE MB 0.67 ng/mL (<4.55)
[2020-03-13 19:58] LABS: TROPONIN I < 0.012 ng/mL
--- NOTE | 2020-03-13 20:43 | RADIOLOGY REPORT (SQ) ---
EXAM DESCRIPTION: CT CHEST ANGIOGRAPHY WITHOUT THEN WITH IV CONTRAST COMPLETED DATE/TME: 03/13/2020 20:20 COMPARISON: None. TECHNIQUE: Images stored on PACS. All CT scanners at this facility use dose modulation, iterative reconstruction, and/or weight based dosing when appropriate to reduce radiation dose to as low as reasonably achievable (ALARA). [facility]: Dose Right [facility]: CareDose [facility]: Dose Right [facility]: Teradose 4D [facility]: [employer] PROCEDURE: CTA CHEST CLINICAL HISTORY: 59 years Female Chest pain recent surgery COMPARISON: None. TECHNIQUE: Contiguous axial images were obtained through the chest during the infusion of IV contrast. Reformatted images obtained. MIP reformatted images obtained. This exam was performed according to our department optimization program which includes automated exposure control, adjustment of the mA and/or kv according to patient size and/or use of iterative reconstruction technique. FINDINGS: The spleen is irregular in contour and there is an exophytic low-attenuation lesion of the anterior left side of the spleen that is nonspecific. There is extensive aortic atherosclerotic plaque and calcification. There is soft tissue stranding of the fat surrounding the body and tail the pancreas. This can be seen in pancreatitis. Neoplasm is less likely but not excluded. There is mild thickening of the gastric wall, incompletely imaged. The stomach is not well distended which may help explain this. There is atelectasis and possible scarring at the anterior right lung. Atelectasis and scar seen at the left lung base. There are bilateral scattered pulmonary bulla. No pneumothorax is seen. Heart size is normal. No pleural effusions. No lymphadenopathy. No PE is seen. No evidence of aortic aneurysm. No other significant abnormality. IMPRESSION: Possible pancreatitis. Neoplasm is less likely. Extensive aortic atherosclerotic disease. Nonspecific thickening of the gastric wall. Nonspecific splenic lesion. See additional findings above. No evidence of pulmonary embolus.
[2020-03-13] MEDS ORDERED: PANTOPRAZOLE SODIUM 40 MG VIAL IV ONE (21:28)
[2020-03-13] MEDS ORDERED: FAMOTIDINE INJ/PF 20 MG/2 ML SDV IV ONE (21:28)
[2020-03-13] MEDS ORDERED: ONDANSETRON HCL INJ/PF 4 MG/2 ML SDV IV ONE (21:32)
--- NOTE | 2020-03-13 22:17 | ER Document Report ---
ED General - General Chief Complaint: Chest Pain > 30 Stated Complaint: CHEST PAIN Time Seen by Provider: 03/13/20 18:59 Mode of Arrival: Medic Notes: 59F with COPD, hypertension, diabetes, CAD with past MIs CABG, PVD with right arterial graft approximately 2 weeks ago at [facility] on anticoagulation, pancreatitis NOS, cholecystectomy, PUD presents with 2 days of substernal chest pain and epigastric abdominal pain aggravated by taking deep breaths without any associated symptoms, patient had episode of similar symptoms last week but then they abated without any interventions. Patient denies any change in her activity, is able to exert herself without any symptoms. Patient's leg has been improving since surgery and has not had any increased pain and no swelling. Patient had a stress test few weeks ago prior to her graft which did not show any occlusive CAD. Patient has had nausea with symptoms but no vomiting, decreased stool past few days and decreased appetite. Had cholecystectomy many years ago. Endorses history of pancreatitis few years ago but does not know what etiology was. Patient denies any trauma, syncope, exertional chest pain, shortness of breath, cough, fever, urinary symptoms, alcohol use, NSAID use, melena, bright red blood per rectum, obstipation, back pain, weakness and numbness, A. fib TRAVEL OUTSIDE OF THE [place] IN LAST 30 DAYS: No - Related Data Allergies/Adverse Reactions: lisinopril Allergy (Verified 05/29/18 14:58) Past Medical History - General Information source: Patient, [facility] Records - Social History Smoking Status: Former Smoker Chew tobacco use (# tins/day): No Frequency of alcohol use: None Drug Abuse: None Family History: COPD, Hypertension Patient has homicidal ideation: No - Past Medical History Cardiac Medical History: Reports: Hx Hypercholesterolemia, Hx Hypertension Pulmonary Medical History: Reports: Hx Asthma, Hx Sleep Apnea Endocrine Medical History: Reports: Hx Diabetes Mellitus Type 2 Renal/ Medical History: Denies: Hx Peritoneal Dialysis GI Medical History: Reports: Hx Gastroesophageal Reflux Disease Musculoskeletal Medical History: Reports Hx Arthritis, Reports Hx Fibromyalgia Psychiatric Medical History: Reports: Hx Depression Past Surgical History: Reports: Hx Cardiac Surgery - CABG, Hx Coronary Artery Bypass Graft Review of Systems - Review of Systems Notes: REVIEW OF SYSTEMS: CONSTITUTIONAL : Denies fever, chills, or sweats. EENT: Denies recent cold/sinus symptoms, denies throat pain CARDIOVASCULAR: + chest pain, YESSICA RESPIRATORY: Denies cough, denies shortness of breath. GASTROINTESTINAL: + abdominal pain, +nausea GENITOURINARY: Denies difficulty urinating, painful urination. FEMALE GENITOURINARY: Denies abnormal vaginal bleeding, vaginal discharge. MUSCULOSKELETAL: Denies neck pain, back pain. SKIN: Denies rash or skin lesions. HEMATOLOGIC : Denies easy bruising or bleeding. LYMPHATIC: Denies swollen, enlarged glands. NEUROLOGICAL: Denies headache, denies change in gait. PSYCHIATRIC: Denies anxiety or stress or depression. Physical Exam - Vital signs Vitals: Temp 98.8 F 03/13/20 18:50 - Notes Notes: PHYSICAL EXAMINATION: GENERAL: Mildly uncomfortable but nontoxic-appearing middle-aged woman in no acute distress HEAD: Atraumatic, normocephalic. EYES: Pupils equal round and appropriate constriction, sclera anicteric, conjunctiva are normal. ENT: nares patent, moist mucous membranes. NECK: Normal range of motion, supple without lymphadenopathy LUNGS: Breath sounds clear to auscultation bilaterally and equal. No wheezes rales or rhonchi. Normal respiratory rate and effort HEART/CHEST: Mild tachycardia with regular rhythm, no murmurs ABDOMEN: Soft, tenderness over epigastrium, no guarding, no rebound, no masses, no CVA tenderness EXTREMITIES: Normal range of motion, no pitting or edema. No cyanosis. No palpable DP pulses, pulses on both DPs present with Doppler NEUROLOGICAL: Awake, alert, conversing appropriately, moves all extremities spontaneously. PSYCH: Normal mood, normal affect. SKIN: Warm, Dry, normal turgor, no rashes or lesions noted. Course - Re-evaluation Re-evalutation: 03/13/20 22:31 Patient reporting chest pain and abdominal pain but on exam patient's symptoms seem to be centered around epigastric tenderness which is worse when she takes a deep breath because it is moving her diaphragm. Rule out ACS, PE, pancreatitis, mesenteric ischemia, PUD complications. Given that she is recent postop and having pleuritic chest pain and is tachycardic CTA was ordered which did not show PE or aortic dissection but does show signs of pancreatitis which is consistent with patient's exam. Patient's lipase elevated consistent with pancreatitis. No sign of gallstone pancreatitis, other LFTs other than alk phos are not significantly deranged and no right upper quadrant symptoms. Patient's pain improved on nitroglycerin drip though started by EMS but this is also consistent with pancreatitis as nitroglycerin is known to relax sphincter of Oddi and improve pancreatic emptying. Patient mildly tachycardic which is sinus on EKG, likely secondary to pancreatitis/pain and dehydration of hyperglycemia without any signs of DKA or honk. Patient currently n.p.o., fluids ordered, obtain lactate and if clinical picture should change may need to have CTA of abdomen pelvis to rule out mesenteric ischemia, but not emergently indicated at this time. 03/13/20 23:[address] Romo and accepted to telemetry medicine floor, patient's exam remains stable, I have given additional pain medication as initial morphine has now worn off. - Vital Signs Vital signs: Temp Pulse Resp BP Pulse Ox 98.4 F 111 H 18 110/66 98 03/14/20 02:27 03/14/20 02:27 03/14/20 02:27 03/14/20 02:27 03/14/20 02:27 - Laboratory Results Result Diagrams: 03/14/20 05:13 03/14/20 05:13 Laboratory Results Interpreted: 03/13/20 03/13/20 03/13/20 18:59 18:59 18:59 WBC 11.1 H Hgb 11.1 L Hct 33.9 L Sodium 134.2 L Glucose 322 H Alkaline Phosphatase 161 H Creatine Kinase 25 L Lipase 4088.1 H 03/13/20 23:00 WBC Hgb Hct Sodium Glucose Alkaline Phosphatase Creatine Kinase 20 L Lipase Critical Laboratory Results Reviewed: No Critical Results - Radiology Results Critical Radiology Results Reviewed: No Critical Results - EKG Interpretation by Me Additional EKG results interpreted by me: 03/13/20 23:28 Sinus tachycardia, no significant ST elevations, ST depressions in inferior and lateral leads not significantly changed from prior EKG Discharge - Discharge Clinical Impression: Chest pain Qualifiers: Chest pain type: unspecified Qualified Code(s): R07.9 - Chest pain, unspecified Pancreatitis Qualifiers: Chronicity: acute Pancreatitis type: unspecified pancreatitis type Acute pancreatitis complication: no infection or necrosis Qualified Code(s): K85.90 - Acute pancreatitis without necrosis or infection, unspecified Disposition: ADMITTED INPATIENT Admitting Provider: Clar[facility] Unit Admitted: Telemetry
[2020-03-13] MEDS ORDERED: NITROGLYCERIN/D5W 50 MG/250 ML RTUINJ IV PRN (22:38)
[2020-03-13] MEDS ORDERED: CARVEDILOL 12.5 MG TABLET PO ONE (23:00)
[2020-03-13] MEDS ORDERED: IPRATROPIUM/ALBUTEROL 0.5-2.5 MG/3 ML AMPUL NEB PRN (23:20)
[2020-03-13] MEDS ORDERED: ACETAMINOPHEN 325 MG TABLET PO PRN (23:22)
[2020-03-13] MEDS: MORPHINE SULFATE 10 MG/ML INJ IV PRN (23:30)
--- NOTE | 2020-03-13 23:43 | PDOC H&P ---
History of Present Illness Admission Date/PCP: LETICIA JOHNSON MD Patient complains of: Abdominal pain and chest pain History of Present Illness: STAN MARTINES is a 59 year old female with a history of CAD status post CABG in 2016, COPD, type 2 diabetes who now presents with a 2 days duration of epigastric abdominal pain. She described the pain as cramping, 9/10 intensity, constant, nonradiating, aggravated by movement with no clear relieving factor. She also reports associated same duration of a constant retrosternal chest pain with no association with exertion. Patient also reports that she has been feeling nauseated, unable to keep anything down, nonbloody and nonbilious vomiting of ingested matter. She states that she had stress test done recently about 2 to 3 weeks back and was told that it was negative. She denies any cough, shortness of breath, palpitation, dizziness, diarrhea, or any change in her urinary habits. She denies any alcohol use and she had a remote gallbladder surgery. Patient also denies any fever, chills, skin rash. Past Medical History Cardiac Medical History: Reports: Hyperlipidema, Hypertension Pulmonary Medical History: Reports: Asthma, Sleep Apnea Endocrine Medical History: Reports: Diabetes Mellitus Type 2 GI Medical History: Reports: Gastroesophageal Reflux Disease Musculoskeltal Medical History: Reports: Arthritis, Fibromyalgia Psychiatric Medical History: Reports: Depression Past Surgical History Past Surgical History: Reports: Coronary Artery Bypass Graft Social History Information Source: Parent Lives with: Family Smoking Status: Former Smoker Electronic Cigarette use?: No Frequency of Alcohol Use: None Drugs: None - Advance Directive Resuscitation Status: Full Code Family History Family History: COPD, Hypertension Parental Family History Reviewed: Yes Children Family History Reviewed: Yes Sibling(s) Family History Reviewed.: Yes Medication/Allergy Home Medications: Aspirin [Ecotrin 81 mg EC Tablet] 162 mg PO DAILY 12/03/18 Carvedilol [Coreg 12.5 mg Tablet] 12.5 mg PO BID 12/03/18 Cholecalciferol (Vitamin D3) [Vitamin D3 1000 Unit Tablet] 1,000 unit PO DAILY 12/03/18 Cilostazol [Pletal 100 mg Tablet] 100 mg PO BID 12/03/18 Clopidogrel Bisulfate [Plavix] 75 mg PO DAILY 12/03/18 Cyclobenzaprine HCl [Flexeril 10 mg Tablet] 10 mg PO BID 12/03/18 Digoxin [Lanoxin 0.125 mg Tablet] 0.125 mg PO DAILY 12/03/18 Gabapentin [Neurontin] 800 mg PO TID 12/03/18 Hydroxyzine HCl [Atarax 25 mg Tablet] 25 mg PO QIDP PRN 12/03/18 Losartan Potassium [Cozaar] 25 mg PO DAILY 12/03/18 Omeprazole 20 cap PO DAILY 12/03/18 Ondansetron [Ondansetron Odt] 8 mg PO Q6HP PRN 12/03/18 Ropinirole HCl 0.5 mg PO DAILY 12/03/18 Zolpidem Tartrate 10 mg PO PRN PRN 12/03/18 Albuterol Sulfate [Proair HFA Inhalation Aerosol 8.5 gm MDI] 2 puff IH Q4HP PRN 12/04/18 Lamotrigine 100 mg PO DAILY 12/04/18 Oxycodone HCl/Acetaminophen [Percocet 10-325 mg Tablet] 1 each PO Q4HP PRN 12/04/18 Fluticasone/Salmeterol [Advair 250-50 Diskus 14 Dose/Diskus] 1 inh IH Q12H #1 inhaler 12/05/18 Isosorbide Mononitrate [Imdur 30 mg Tablet.er] 30 mg PO DAILY 12/05/18 Prednisone [Deltasone] 20 mg PO BID 5 Days #10 tablet 12/05/18 Allergies/Adverse Reactions: lisinopril Allergy (Verified 05/29/18 14:58) Review of Systems Constitutional: PRESENT: as per HPI Eyes: ABSENT: visual disturbances Ears: ABSENT: hearing changes Nose, Mouth, and Throat: ABSENT: mouth pain, sore throat Cardiovascular: PRESENT: as per HPI. ABSENT: dyspnea on exertion, edema, orthropnea, palpitations Respiratory: ABSENT: cough, hemoptysis Gastrointestinal: PRESENT: as per HPI Genitourinary: ABSENT: dysuria, hematuria Musculoskeletal: ABSENT: joint swelling Integumentary: ABSENT: rash, wounds Neurological: ABSENT: abnormal gait, abnormal speech, confusion, dizziness, focal weakness, syncope Psychiatric: ABSENT: anxiety, depression, homidical ideation, suicidal ideation Endocrine: ABSENT: cold intolerance, heat intolerance, polydipsia, polyuria Hematologic/Lymphatic: ABSENT: easy bleeding, easy bruising Physical Exam Vital Signs: Temp Pulse Resp BP Pulse Ox 98.8 F 19 141/96 H 98 03/13/20 19:01 03/13/20 19:02 03/13/20 19:01 03/13/20 19:02 Intake & Output 03/12/20 03/13/20 03/14/20 06:59 06:59 06:59 Intake Total 10 Balance 10 Weight 55.4 kg Additional comments: GENERAL APPEARANCE: Alert and oriented x3, in no acute distress HEENT: Normocephalic and atraumatic. No scleral icterus. Moist oral mucosa NECK: Supple. No lymphadenopathy or tenderness. No carotid bruit. No JVD CHEST: Symmetric. Nontender to palpation. LUNGS: Clear with good air entry bilaterally. No wheezing or crackles HEART: Regular rate and rhythm with normal S1 and S2. No murmurs, gallops, or rubs. ABDOMEN: Not right upper quadrant abdominal scar from previous cholecystectomy. Abdomen is soft, active bowel sounds, has mild tenderness on palpation at the epigastric and left upper quadrant area but no guarding rigidity or rebound ten derness. No organomegaly detected. EXTREMITIES: No cyanosis, clubbing, or edema. Has a healing scar on her right lower extremity from a recent vascular surgery MUSCULOSKELETAL: No deformity, atrophy or swelling noted PSYCHIATRIC: Recent and remote memory is intact. Appropriate mood and affect. SKIN: Warm, dry, and well perfused. No lesions or rashes are noted. NEUROLOGIC: No focal sensory or motor deficits are noted. Results Laboratory Results: 03/13/20 18:59 03/13/20 18:59 03/13/20 03/13/20 03/13/20 18:59 18:59 18:59 WBC 11.1 H RBC 3.75 Hgb 11.1 L Hct 33.9 L MCV 91 MCH 29.7 MCHC 32.9 RDW 12.6 Plt Count 333 Seg Neutrophils % 73.6 Sodium 134.2 L Potassium 4.5 Chloride 99 Carbon Dioxide 27 Anion Gap 8 BUN 19 Creatinine 0.80 Est GFR ( Amer) > 60 Glucose 322 H Calcium 9.9 Total Bilirubin 0.4 AST 18 Alkaline Phosphatase 161 H Total Protein 6.6 Albumin 3.7 Lipase 4088.1 H 03/13/20 03/13/20 03/13/20 18:59 18:59 23:00 Creatine Kinase 25 L 20 L CK-MB (CK-2) 0.67 Troponin I < 0.012 Impressions: Chest X-Ray 03/13/20 18:52 IMPRESSION: 1. NO ACUTE RADIOGRAPHIC FINDING IN THE CHEST. Chest/Abdomen CTA 03/13/20 18:59 IMPRESSION: Possible pancreatitis. Neoplasm is less likely. Extensive aortic atherosclerotic disease. Nonspecific thickening of the gastric wall. Nonspecific splenic lesion. See additional findings above. No evidence of pulmonary embolus. Assessment and Plan - Diagnosis (1) Acute pancreatitis Is this a current diagnosis for this admission?: Yes Plan: Presents with abdominal pain, nausea and vomiting Serum lipase elevated at 4088 CT abdomen showed signs of pancreatitis with nonspecific gastric wall thickening Due to history of extensive cardiac history will hydrate her cautiously at 100 mL/h Control pain with morphine Kept her n.p.o. for now Right upper quadrant ultrasound in the a.m. (2) Chest pain Qualifiers: Chest pain type: unspecified Qualified Code(s): R07.9 - Chest pain, un specified Is this a current diagnosis for this admission?: Yes Plan: Patient also reports that she has chest pain which is nonexertional Pain started at the same time with abdominal pain Patient has a history of CAD with CABG done in 2015 Cardiac enzymes has been negative x2 EKG shows ST depression on lateral leads but is unchanged from the previous study in November 2018 She had a recent stress test in January 2020 and was told that it was negative Continue aspirin, Plavix, statin, carvedilol Nitroglycerin sublingual as needed for chest pain Continue trending cardiac enzymes and EKG On telemetry monitoring (3) COPD without exacerbation Is this a current diagnosis for this admission?: Yes Plan: Currently not in acute exacerbation CT of the chest showed no sign of PE Continue breathing treatment with DuoNeb (4) Type 2 diabetes mellitus Is this a current diagnosis for this admission?: Yes Plan: Blood sugar was 322 on presentation Placed her on sliding scale insulin, Accu-Chek and hypoglycemia protocol (5) Peripheral vascular disease Is this a current diagnosis for this admission?: Yes Plan: Status post recent revascularization surgery Continue aspirin, statin and cilostazol (6) CAD (coronary artery disease) Is this a current diagnosis for this admission?: Yes Plan: Currently presented with chest pain Nuclear stress test 3 weeks back was negative Cardiac enzymes x2 were negative EKG shows lateral ST depression but unchanged from previous study Continue aspirin, Plavix, atorvastatin, carvedilol as stated above - Time Time Spent with patient: 35 or more minutes Total Critical Time (Minutes): 45 Medications reviewed and adjusted accordingly: Yes Anticipated Discharge Disposition: Home, Self Care Anticipated Discharge Timeframe: within 72 hours - Inpatient Certification Based on my medical assessment, after consideration of the patient's comorbidities, presenting symptoms, or acuity I expect that the services needed warrant INPATIENT care.: Yes I certify that my determination is in accordance with my understanding of Medicare's requirements for reasonable and necessary INPATIENT services [42 CFR 412.3e].: Yes Medical Necessity: Significant Comorbidiites Make Outpatient Treatment Too Risky, Need For IV Fluids, Need For Continuous Telemetry Monitoring, Risk of Complication if Not Cared For in Hospital Post Hospital Care: D/C or Transfer Summary
[2020-03-13] MEDS ORDERED: GLUCAGON,HUMAN RECOMB 1 MG INJ IM PRN (23:58)
[2020-03-13] MEDS ORDERED: DEXTROSE 40% GEL 15 GM TUBE PO PRN ×2 (23:58)
[2020-03-13] MEDS ORDERED: DEXTROSE 50%-WATER 25 GM/50 ML DISP.SYRIN IV PRN ×2 (23:58)
[2020-03-13] MEDS ORDERED: NITROGLYCERIN 0.4 MG/TAB 25 TAB/BOTTLE SL PRN (23:59)
[2020-03-14] MEDS: RINGERS SOLUTION,LACTATED 1,000 ML IV PRN ×2 (02:19→11:28)
[2020-03-14] MEDS: ONDANSETRON HCL INJ/PF 4 MG/2 ML SDV IV PRN ×2 (03:09→15:55)
[2020-03-14] MEDS: MORPHINE SULFATE 10 MG/ML INJ IV PRN ×5 (03:09→21:14)
[2020-03-14 06:05] LABS: ABSOLUTE BASOPHILS # (AUTO) 0.1 10^3/uL (0.0-0.2); ABSOLUTE EOSINOPHILS # (AUTO) 0.2 10^3/uL (0.0-0.6); ABSOLUTE LYMPHOCYTES (AUTO) 2.2 10^3/uL (0.5-4.7); ABSOLUTE MONOCYTES (AUTO) 0.4 10^3/uL (0.1-1.4); ABSOLUTE NEUT (AUTO) 4.9 10^3/uL (1.7-8.2); BASOPHILS % (AUTO) 0.8 % (0-2); EOSINOPHILS % (AUTO) 2.8 % (0-6); HEMATOCRIT 28.9 % (36.0-47.0); HEMOGLOBIN 9.9 g/dL (12.0-15.5); MEAN CORPUSCULAR HEMOGLOBIN 30.5 pg (27.0-33.4); MEAN CORPUSCULAR HGB CONC 34.3 g/dL (32.0-36.0); MEAN CORPUSCULAR VOLUME 89 fl (80-97); MONOCYTES % (AUTO) 5.7 % (3-13); PLATELET COUNT 262 10^3/uL (150-450); RED BLOOD COUNT 3.25 10^6/uL (3.72-5.28); SEGMENTED NEUTROPHILS % (AUTO) 62.7 % (42-78); TOTAL CELLS COUNTED % (AUTO) 100 %; WHITE BLOOD COUNT 7.8 10^3/uL (4.0-10.5)
[2020-03-14 06:25] LABS: ANION GAP 8 (5-19); BLOOD UREA NITROGEN 15 mg/dL (7-20); CALCIUM 9.6 mg/dL (8.4-10.2); CARBON DIOXIDE 27 mmol/L (22-30); CHLORIDE 102 mmol/L (98-107); GLUCOSE 191 mg/dL (75-110); POTASSIUM 4.4 mmol/L (3.6-5.0)
[2020-03-14] MEDS: INSULIN REG, HUMAN 100 UNIT/ML 3 ML VIAL (PYX) SUBCUT SCH ×4 (06:48→18:08)
--- NOTE | 2020-03-14 07:22 | EKG REPORT ---
SEVERITY:- ABNORMAL ECG - SINUS TACHYCARDIA ANTERIOR INFARCT, OLD NONSPECIFIC ST-T CHANGES DIFFUSE : Confirmed by: Wilson Hernandez MD 14-Mar-2020 07:21:26
[2020-03-14] MEDS: ENOXAPARIN SODIUM INJ 40 MG/0.4 ML DISP.SYRIN SUBCUT SCH (09:33)
[2020-03-14] MEDS: FAMOTIDINE INJ/PF 20 MG/2 ML SDV IV SCH ×2 (09:33→21:14)
[2020-03-14] MEDS: CARVEDILOL 12.5 MG TABLET PO SCH ×2 (10:16→21:15)
[2020-03-14] MEDS ORDERED: ALBUTEROL SULFATE HFA (90 MCG/PUFF) 8 GM MDI (1 MDI/ER DISP) IH PRN (11:27)
[2020-03-14] MEDS ORDERED: (PENDING PHARMACY ID) (Oxycodone Hcl/Acetaminophen [Percocet 10-325 Mg Tablet] 1 EACH Tabl PO PRN (11:27)
[2020-03-14] MEDS: LOSARTAN POTASSIUM 25 MG TABLET PO SCH (11:28)
[2020-03-14] MEDS ORDERED: DIPHENHYDRAMINE HCL 50 MG/ML VIAL IV ONE ×2 (11:30→19:00)
[2020-03-14] MEDS ORDERED: METOCLOPRAMIDE HCL INJ/PF 10 MG/2 ML SDV IV ONE (11:30)
[2020-03-14] MEDS ORDERED: ALBUTEROL SULFATE HFA (90 MCG/PUFF) 8 GM MDI IH PRN (11:37)
[2020-03-14 11:56] LABS: TRIGLYCERIDES 194 mg/dL (<150)
[2020-03-14 12:18] LABS: DIRECT LDL 79 mg/dL (<100)
[2020-03-14 12:35] LABS: VLDL CHOLESTEROL 38.8 mg/dL (10-31)
[2020-03-14] MEDS: METOCLOPRAMIDE HCL INJ/PF 10 MG/2 ML SDV IV SCH ×2 (12:50→18:50)
[2020-03-14] MEDS ORDERED: OXYCODONE HCL IR 5 MG TABLET PO PRN (13:12)
[2020-03-14] MEDS ORDERED: OXYCODONE-ACETAMINOPHEN 5-325 MG TABLET PO PRN (13:12)
--- NOTE | 2020-03-14 15:34 | RADIOLOGY REPORT (SQ) ---
EXAM DESCRIPTION: U/S ABDOMEN LIMITED W/O DOP IMAGES COMPLETED DATE/TIME: 03/14/2020 3:19 pm REASON FOR STUDY: pancreatitis COMPARISON: None. TECHNIQUE: Dynamic and static grayscale images acquired of the abdomen and recorded on PACS. Additio nal selected color Doppler and spectral images recorded. LIMITATIONS: None. FINDINGS: PANCREAS: The pancreas is heterogenous and echogenic in appearance. These findings may b e consistent with the patient's known history of pancreatitis. Pancreatic duct measures 2.0 mm, norm al size. LIVER: The liver measures 14.5 cm in length, normal size. Normal echotexture. LIVER VASCULATURE: Normal directional flow of the main portal vein and hepatic veins. GALLBLADDER: Prior cholecystectomy. ULTRASOUND-DETECTED RODRIGUEZ'S SIGN: Negative. INTRAHEPATIC DUCTS AND COMMON DUCT: CBD measures 6.0 mm in a post cholecystectomy patient. Mild cent ral intrahepatic ductal dilatation. INFERIOR VENA CAVA: Normal flow. AORTA: No aneurysm. RIGHT KIDNEY: The right kidney measures 9.0 cm in length, normal size. Mild cortical thinning. No hydronephrosis. No calcifications. PERITONEAL AND RIGHT PLEURAL SPACE: No ascites or effusions. OTHER: No other significant findings. IMPRESSION: 1. The pancreas is echogenic and heterogenous in appearance. These findings may be con sistent with the patient's history of pancreatitis. 2. Prior cholecystectomy. Mild central intrahepatic biliary ductal dilatation. TECHNICAL DOCUMENTATION: JOB ID: [id number] [employer]- All Rights Reserved Reading location - IP/workstation name: [email or web address]
--- NOTE | 2020-03-14 17:41 | PDOC PROGRESS REPORT ---
Subjective Date:: 03/14/20 Subjective:: STAN MARTINES is a 59 year old female with a history of CAD status post CABG i n 2016, COPD, type 2 diabetes who now presents with a 2 days duration of epigastric abdominal pain. She described the pain as cramping, 9/10 intensity, constant, nonradiating, aggravated by movement with no clear relieving factor. She also reports associated same duration of a constant retrosternal chest pain with no association with exertion. Patient also reports that she has been feeling nauseated, unable to keep anything down, nonbloody and nonbilious vomiting of ingested matter. She states that she had stress test done recently about 2 to 3 weeks back and was told that it was negative. She denies any cough, shortness of breath, palpitation, dizziness, diarrhea, or any change in her urinary habits. She denies any alcohol use and she had a remote gallbladder surgery. Patient also denies any fever, chills, skin rash. D2 hospital stay 03/14/20 Patient was seen and examined at bedside. She still reports significant nausea, no vomiting. Abdominal pain controlled with morphine. US abdomen showed findings consistent with pancreatitis, mild central intrahepatic bile duct dilatation. She is still currently on IV fluids and morphine for pain. Diet switched to clear liquid. Reason For Visit: ACUTE PANCREATITIS,CHEST PAIN Physical Exam Vital Signs: Temp Pulse Resp BP Pulse Ox 98.5 F 93 15 115/65 94 03/14/20 11:54 03/14/20 14:29 03/14/20 14:29 03/14/20 11:54 03/14/20 14:29 Intake & Output 03/13/20 03/14/20 03/15/20 06:59 06:59 06:59 Intake Total 10 915 Balance 10 915 Weight 60.2 kg General appearance: PRESENT: no acute distress, cooperative Head exam: PRESENT: atraumatic, normocephalic Eye exam: PRESENT: EOMI, PERRLA Mouth exam: PRESENT: moist Neck exam: PRESENT: full ROM Respiratory exam: PRESENT: clear to auscultation chauncey, symmetrical, unlabored Cardiovascular exam: PRESENT: RRR, +S1, +S2 Pulses: PRESENT: +2 pedal pulses bilateral GI/Abdominal exam: PRESENT: normal bowel sounds, rebound, soft, tenderness - Epigastric and left upper quadrant tenderness Extremities exam: PRESENT: full ROM Musculoskeletal exam: PRESENT: full ROM Neurological exam: PRESENT: alert, awake, oriented to person, oriented to place, oriented to time, oriented to situation Psychiatric exam: PRESENT: normal mood Skin exam: PRESENT: normal color Results Laboratory Results: 03/14/20 05:13 03/14/20 05:13 03/13/20 03/13/20 03/13/20 18:59 18:59 18:59 WBC 11.1 H RBC 3.75 Hgb 11.1 L Hct 33.9 L MCV 91 MCH 29.7 MCHC 32.9 RDW 12.6 Plt Count 333 Seg Neutrophils % 73.6 Sodium 134.2 L Potassium 4.5 Chloride 99 Carbon Dioxide 27 Anion Gap 8 BUN 19 Creatinine 0.80 Est GFR ( Amer) > 60 Glucose 322 H Lactic Acid Calcium 9.9 Magnesium Total Bilirubin 0.4 AST 18 Alkaline Phosphatase 161 H Total Protein 6.6 Albumin 3.7 Triglycerides Cholesterol LDL Cholesterol Direct VLDL Cholesterol HDL Cholesterol Lipase 4088.1 H 03/14/20 03/14/20 03/14/20 01:10 05:13 05:13 WBC 7.8 RBC 3.25 L Hgb 9.9 L Hct 28.9 L MCV 89 MCH 30.5 MCHC 34.3 RDW 13.0 Plt Count 262 Seg Neutrophils % 62.7 Sodium 137.3 Potassium 4.4 Chloride 102 Carbon Dioxide 27 Anion Gap 8 BUN 15 Creatinine 0.78 Est GFR ( Amer) > 60 Glucose 191 H Lactic Acid 0.8 Calcium 9.6 Magnesium 1.8 Total Bilirubin AST Alkaline Phosphatase Total Protein Albumin Triglycerides Cholesterol LDL Cholesterol Direct VLDL Cholesterol HDL Cholesterol Lipase 03/14/20 05:13 WBC RBC Hgb Hct MCV MCH MCHC RDW Plt Count Seg Neutrophils % Sodium Potassium Chloride Carbon Dioxide Anion Gap BUN Creatinine Est GFR ( Amer) Glucose Lactic Acid Calcium Magnesium Total Bilirubin AST Alkaline Phosphatase Total Protein Albumin Triglycerides 194 H Cholesterol 154.30 LDL Cholesterol Direct 79 VLDL Cholesterol 38.8 H HDL Cholesterol 36 L Lipase 03/13/20 03/13/20 03/13/20 18:59 18:59 23:00 Creatine Kinase 25 L 20 L CK-MB (CK-2) 0.67 Troponin I < 0.012 03/13/20 03/13/20 03/14/20 23:00 23:00 05:13 Creatine Kinase CK-MB (CK-2) 0.51 Troponin I < 0.012 < 0.012 Impressions: Chest X-Ray 03/13/20 18:52 IMPRESSION: 1. NO ACUTE RADIOGRAPHIC FINDING IN THE CHEST. Chest/Abdomen CTA 03/13/20 18:59 IMPRESSION: Possible pancreatitis. Neoplasm is less likely. Extensive aortic atherosclerotic disease. Nonspecific thickening of the gastric wall. Nonspecific splenic lesion. See additional findings above. No evidence of pulmonary embolus. Abdomen Ultrasound 03/14/20 00:00 IMPRESSION: 1. The pancreas is echogenic and heterogenous in appearance. These findings may be consistent with the patient's history of pancreatitis. 2. Prior cholecystectomy. Mild central intrahepatic biliary ductal dilatation. Assessment and Plan - Diagnosis (1) Acute pancreatitis Is this a current diagnosis for this admission?: Yes Plan: Presents with abdominal pain, nausea and vomiting Serum lipase elevated at 4088 CT abdomen showed signs of pancreatitis with nonspecific gastric wall thickening Due to history of extensive cardiac history will hydrate her cautiously at 100 mL/h Control pain with morphine advanced to clear liquid Right upper quadrant ultrasound showing cholecystectomy changes, mild central intrahepatic bile duct dilatation (2) COPD without exacerbation Is this a current diagnosis for this admission?: Yes Plan: Currently not in acute exacerbation CT of the chest showed no sign of PE Continue breathing treatment with DuoNeb (3) Chest pain Qualifiers: Chest pain type: unspecified Qualified Code(s): R07.9 - Chest pain, unspecified Is this a current diagnosis for this admission?: Yes Plan: Patient also reports that she has chest pain which is nonexertional Pain started at the same time with abdominal pain Patient has a history of CAD with CABG done in 2016 Cardiac enzymes has been negative x2 EKG shows ST depression on lateral leads but is unchanged from the previous study in November 2018 She had a recent stress test in January 2020 and was told that it was negative Continue aspirin, Plavix, statin, carvedilol Nitroglycerin sublingual as needed for chest pain Continue trending cardiac enzymes and EKG On telemetry monitoring (4) Peripheral vascular disease Is this a current diagnosis for this admission?: Yes Plan: Status post recent revascularization surgery Continue aspirin, statin and cilostazol (5) Type 2 diabetes mellitus Is this a current diagnosis for this admission?: Yes Plan: Blood sugar was 322 on presentation Placed her on sliding scale insulin, Accu-Chek and hypoglycemia protocol (6) CAD (coronary artery disease) Is this a current diagnosis for this admission?: Yes Plan: Currently presented with chest pain Nuclear stress test 3 weeks back was negative Cardiac enzymes x2 were negative EKG shows lateral ST depression but unchanged from previous study Continue aspirin, Plavix, atorvastatin, carvedilol as stated above (7) COPD exacerbation Is this a current diagnosis for this admission?: Yes Plan: not in exacerbation - Time Time Spent with patient: 25-34 minutes Medications reviewed and adjusted accordingly: Yes Anticipated Discharge Disposition: Home, Self Care Anticipated Discharge Timeframe: TBD
[2020-03-14] MEDS ORDERED: (PENDING PHARMACY ID) (Duloxetine Hcl [Cymbalta] 60 MG Capsule.Dr) PO SCH (18:00)
[2020-03-14] MEDS: PANTOPRAZOLE SODIUM 40 MG VIAL IV SCH (18:08)
[2020-03-14] MEDS: CILOSTAZOL 100 MG TABLET PO SCH (18:08)
[2020-03-14] MEDS: DULOXETINE HCL 30 MG CAPSULE.DR PO SCH (21:14)
[2020-03-14] MEDS: ATORVASTATIN CALCIUM 40 MG TABLET PO SCH (21:15)
[2020-03-14] MEDS: ZOLPIDEM TARTRATE 5 MG TABLET PO SCH (21:15)
[2020-03-14] MEDS: ROPINIROLE HCL 0.25 MG TABLET PO SCH (21:16)
[2020-03-14] MEDS ORDERED: ROPINIROLE HCL 0.5 MG PO SCH (22:00)
[2020-03-14] MEDS ORDERED: ZOLPIDEM TARTRATE 10 MG PO SCH (22:00)
[2020-03-15] MEDS: INSULIN REG, HUMAN 100 UNIT/ML 3 ML VIAL (PYX) SUBCUT SCH ×4 (00:49→18:53)
[2020-03-15] MEDS: METOCLOPRAMIDE HCL INJ/PF 10 MG/2 ML SDV IV SCH ×4 (00:50→18:58)
[2020-03-15] MEDS: ASPIRIN 81 MG TABLET, ENT COATED PO SCH (08:33)
[2020-03-15] MEDS: RINGERS SOLUTION,LACTATED 1,000 ML IV PRN ×2 (08:33→23:12)
[2020-03-15] MEDS ORDERED: HYDROXYZINE PAMOATE 25 MG CAPSULE PO PRN (08:37)
[2020-03-15] MEDS ORDERED: OXYCODONE HCL IR 5 MG TABLET PO PRN (08:42)
[2020-03-15] MEDS: ONDANSETRON HCL INJ/PF 4 MG/2 ML SDV IV PRN (09:54)
[2020-03-15] MEDS: ENOXAPARIN SODIUM INJ 40 MG/0.4 ML DISP.SYRIN SUBCUT SCH (09:58)
[2020-03-15] MEDS: PANTOPRAZOLE SODIUM 40 MG VIAL IV SCH (09:59)
[2020-03-15] MEDS: DULOXETINE HCL 30 MG CAPSULE.DR PO SCH ×2 (10:00→22:47)
[2020-03-15] MEDS: FAMOTIDINE INJ/PF 20 MG/2 ML SDV IV SCH ×2 (10:00→22:46)
[2020-03-15] MEDS ORDERED: (PENDING PHARMACY ID) (Tiotropium Bromide [Spiriva Handihaler 5 Cap/Kit (18 Mcg/Cap)] 5 CA IH SCH (10:00)
[2020-03-15] MEDS: METOPROLOL SUCCINATE 50 MG TAB.SR.24H PO SCH (10:04)
[2020-03-15] MEDS: CILOSTAZOL 100 MG TABLET PO SCH ×2 (10:04→18:57)
[2020-03-15] MEDS: LOSARTAN POTASSIUM 25 MG TABLET PO SCH (10:08)
[2020-03-15] MEDS: UMECLIDINIUM BROMIDE 62.5 MCG/DOSE IH SCH (10:08)
[2020-03-15] MEDS: GABAPENTIN 400 MG CAPSULE PO SCH ×2 (15:17→22:47)
--- NOTE | 2020-03-15 16:52 | PDOC PROGRESS REPORT ---
Subjective Date:: 03/15/20 Subjective:: STAN MARTINES is a 59 year old female with a history of CAD status post CABG i n 2016, COPD, type 2 diabetes who now presents with a 2 days duration of epigastric abdominal pain. She described the pain as cramping, 9/10 intensity, constant, nonradiating, aggravated by movement with no clear relieving factor. She also reports associated same duration of a constant retrosternal chest pain with no association with exertion. Patient also reports that she has been feeling nauseated, unable to keep anything down, nonbloody and nonbilious vomiting of ingested matter. She states that she had stress test done recently about 2 to 3 weeks back and was told that it was negative. She denies any cough, shortness of breath, palpitation, dizziness, diarrhea, or any change in her urinary habits. She denies any alcohol use and she had a remote gallbladder surgery. Patient also denies any fever, chills, skin rash. D2 hospital stay 03/14/20 Patient was seen and examined at bedside. She still reports significant nausea, no vomiting. Abdominal pain controlled with morphine. US abdomen showed findings consistent with pancreatitis, mild central intrahepatic bile duct dilatation. She is still currently on IV fluids and morphine for pain. Diet switched to clear liquid. D3 Hospital stay 03/15/20 Patient was seen and examined at bedside. She reports that she is less nauseous and her abdominal pain has improved. She is able to tolerate clear liquid diet and I have transitioned her to regular diet. The plan is if she is able to tolerate regular diet by tomorrow she can be discharged and follow up with a GI doctor Reason For Visit: ACUTE PANCREATITIS,CHEST PAIN Physical Exam Vital Signs: Temp Pulse Resp BP Pulse Ox 98.5 F 70 16 105/59 L 94 03/15/20 00:37 03/15/20 12:08 03/15/20 12:08 03/15/20 00:37 03/15/20 12:08 Intake & Output 03/14/20 03/15/20 03/16/20 06:59 06:59 06:59 Intake Total 10 1565 1000 Balance 10 1565 1000 Weight 60.2 kg 69.3 kg General appearance: PRESENT: no acute distress, cooperative Head exam: PRESENT: atraumatic, normocephalic Eye exam: PRESENT: EOMI, PERRLA Mouth exam: PRESENT: moist Neck exam: PRESENT: full ROM Respiratory exam: PRESENT: clear to auscultation chauncey, symmetrical, unlabored Cardiovascular exam: PRESENT: RRR, +S1, +S2 Pulses: PRESENT: +2 pedal pulses bilateral GI/Abdominal exam: PRESENT: normal bowel sounds, soft. ABSENT: rebound, tenderness Extremities exam: PRESENT: full ROM Musculoskeletal exam: PRESENT: full ROM Neurological exam: PRESENT: alert, awake, oriented to person, oriented to place, oriented to time, oriented to situation Psychiatric exam: PRESENT: normal mood Skin exam: PRESENT: normal color Results Laboratory Results: 03/14/20 05:13 03/14/20 05:13 03/15/20 04:57 Lipase 1262.2 H 03/13/20 03/13/20 03/13/20 18:59 18:59 23:00 Creatine Kinase 25 L 20 L CK-MB (CK-2) 0.67 Troponin I < 0.012 03/13/20 03/13/20 03/14/20 23:00 23:00 05:13 Creatine Kinase CK-MB (CK-2) 0.51 Troponin I < 0.012 < 0.012 Impressions: Chest X-Ray 03/13/20 18:52 IMPRESSION: 1. NO ACUTE RADIOGRAPHIC FINDING IN THE CHEST. Chest/Abdomen CTA 03/13/20 18:59 IMPRESSION: Possible pancreatitis. Neoplasm is less likely. Extensive aortic atherosclerotic disease. Nonspecific thickening of the gastric wall. Nonspecific splenic lesion. See additional findings above. No evidence of pulmonary embolus. Abdomen Ultrasound 03/14/20 00:00 IMPRESSION: 1. The pancreas is echogenic and heterogenous in appearance. These findings may be consistent with the patient's history of pancreatitis. 2. Prior cholecystectomy. Mild central intrahepatic biliary ductal dilatation. Assessment and Plan - Diagnosis (1) Acute pancreatitis Qualifiers: Acute pancreatitis complication: no infection or necrosis Is this a current diagnosis for this admission?: Yes Plan: Presents with abdominal pain, nausea and vomiting Serum lipase elevated at 4088 CT abdomen showed signs of pancreatitis with nonspecific gastric wall thickening Due to history of extensive cardiac history will hydrate her cautiously at 100 mL/h transitioned to oral oxycodone advanced to general diet Right upper quadrant ultrasound showing cholecystectomy changes, mild central intrahepatic bile duct dilatation TAG mildly elevated 194, IgG4 normal would need a GI follow up outpatient (2) COPD without exacerbation Is this a current diagnosis for this admission?: Yes Plan: Currently not in acute exacerbation CT of the chest showed no sign of PE Continue breathing treatment with DuoNeb (3) Chest pain Qualifiers: Chest pain type: unspecified Qualified Code(s): R07.9 - Chest pain, unspecified Is this a current diagnosis for this admission?: Yes Plan: Patient also reports that she has chest pain which is nonexertional Pain started at the same time with abdominal pain Patient has a history of CAD with CABG done in 2015 Cardiac enzymes has been negative x2 EKG shows ST depression on lateral leads but is unchanged from the previous st udy in November 2018 She had a recent stress test in January 2020 and was told that it was negative Continue aspirin, Plavix, statin, carvedilol Nitroglycerin sublingual as needed for chest pain Continue trending cardiac enzymes and EKG On telemetry monitoring (4) Peripheral vascular disease Is this a current diagnosis for this admission?: Yes Plan: Status post recent revascularization surgery Continue aspirin, statin and cilostazol (5) Type 2 diabetes mellitus Is this a current diagnosis for this admission?: Yes Plan: Blood sugar was 322 on presentation Placed her on sliding scale insulin, Accu-Chek and hypoglycemia protocol (6) CAD (coronary artery disease) Is this a current diagnosis for this admission?: Yes Plan: Currently presented with chest pain Nuclear stress test 3 weeks back was negative Cardiac enzymes x2 were negative EKG shows lateral ST depression but unchanged from previous study Continue aspirin, Plavix, atorvastatin, carvedilol as stated above (7) COPD exacerbation Is this a current diagnosis for this admission?: Yes Plan: not in exacerbation - Time Time Spent with patient: 25-34 minutes Medications reviewed and adjusted accordingly: Yes Anticipated Discharge Disposition: Home, Self Care Anticipated Discharge Timeframe: within 48 hours
[2020-03-15] MEDS: ATORVASTATIN CALCIUM 40 MG TABLET PO SCH (22:46)
[2020-03-15] MEDS: ROPINIROLE HCL 0.25 MG TABLET PO SCH (22:46)
[2020-03-15] MEDS: ZOLPIDEM TARTRATE 5 MG TABLET PO SCH (22:47)
[2020-03-16] MEDS: INSULIN REG, HUMAN 100 UNIT/ML 3 ML VIAL (PYX) SUBCUT SCH ×3 (00:25→11:27)
[2020-03-16] MEDS: METOCLOPRAMIDE HCL INJ/PF 10 MG/2 ML SDV IV SCH (00:59)
[2020-03-16] MEDS ORDERED: ONDANSETRON 4 MG TAB.RAPDIS PO PRN (05:01)
[2020-03-16] MEDS: GABAPENTIN 400 MG CAPSULE PO SCH (05:46)
[2020-03-16] MEDS ORDERED: (PENDING PHARMACY ID) (Metoprolol Succinate [Toprol Xl] 100 MG Tab.Er.24h) PO SCH (08:00)
[2020-03-16 08:54] VITALS: BP 133/72
[2020-03-16] MEDS: DULOXETINE HCL 30 MG CAPSULE.DR PO SCH (09:42)
[2020-03-16] MEDS: METOPROLOL SUCCINATE 50 MG TAB.SR.24H PO SCH (09:42)
[2020-03-16] MEDS: ENOXAPARIN SODIUM INJ 40 MG/0.4 ML DISP.SYRIN SUBCUT SCH (09:42)
[2020-03-16] MEDS: ASPIRIN 81 MG TABLET, ENT COATED PO SCH (09:42)
[2020-03-16] MEDS: UMECLIDINIUM BROMIDE 62.5 MCG/DOSE IH SCH (09:42)
[2020-03-16] MEDS: LOSARTAN POTASSIUM 25 MG TABLET PO SCH (09:43)
[2020-03-16] MEDS: CILOSTAZOL 100 MG TABLET PO SCH (09:43)
[2020-03-16] MEDS ORDERED: FAMOTIDINE 20 MG TABLET PO SCH (10:00)
--- NOTE | 2020-03-17 07:01 | PDOC DISCHARGE SUMMARY ---
Impression - Admit/DC Date/PCP Admission Date/Primary Care Provider: 03/14/20 09:32 LETICIA JOHNSON MD Discharge Date: 03/16/20 - Discharge Diagnosis (1) Acute pancreatitis Is this a current diagnosis for this admission?: Yes (2) COPD without exacerbation Is this a current diagnosis for this admission?: Yes (3) Chest pain Is this a current diagnosis for this admission?: Yes (4) Peripheral vascular disease Is this a current diagnosis for this admission?: Yes (5) Type 2 diabetes mellitus Is this a current diagnosis for this admission?: Yes (6) CAD (coronary artery disease) Is this a current diagnosis for this admission?: Yes (7) COPD exacerbation Is this a current diagnosis for this admission?: Yes - Assessment Summary: (1) Acute pancreatitis Qualifiers: Acute pancreatitis complication: no infection or necrosis Is this a current diagnosis for this admission?: Yes Plan: Presents with abdominal pain, nausea and vomiting Serum lipase elevated at 4088 CT abdomen showed signs of pancreatitis with nonspecific gastric wall thickening Due to history of extensive cardiac history will hydrate her cautiously at 100 mL/h transitioned to oral oxycodone advanced to general diet Right upper quadrant ultrasound showing cholecystectomy changes, mild central intrahepatic bile duct dilatation TAG mildly elevated 194, IgG4 normal would need a GI follow up outpatient (2) COPD without exacerbation Is this a current diagnosis for this admission?: Yes Plan: Currently not in acute exacerbation CT of the chest showed no sign of PE Continue breathing treatment with DuoNeb (3) Chest pain Qualifiers: Chest pain type: unspecified Qualified Code(s): R07.9 - Chest pain, unspecified Is this a current diagnosis for this admission?: Yes Plan: Patient also reports that she has chest pain which is nonexertional Pain started at the same time with abdominal pain Patient has a history of CAD with CABG done in 2016 Cardiac enzymes has been negative x2 EKG shows ST depression on lateral leads but is unchanged from the previous study in November 2018 She had a recent stress test in January 2020 and was told that it was negative Continue aspirin, Plavix, statin, carvedilol Nitroglycerin sublingual as needed for chest pain Continue trending cardiac enzymes and EKG On telemetry monitoring (4) Peripheral vascular disease Is this a current diagnosis for this admission?: Yes Plan: Status post recent revascularization surgery Continue aspirin, statin and cilostazol (5) Type 2 diabetes mellitus Is this a current diagnosis for this admission?: Yes Plan: Blood sugar was 322 on presentation Placed her on sliding scale insulin, Accu-Chek and hypoglycemia protocol (6) CAD (coronary artery disease) Is this a current diagnosis for this admission?: Yes Plan: Currently presented with chest pain Nuclear stress test 3 weeks back was negative Cardiac enzymes x2 were negative EKG shows lateral ST depression but unchanged from previous study Continue aspirin, Plavix, atorvastatin, carvedilol as stated above (7) COPD exacerbation Is this a current diagnosis for this admission?: Yes Plan: not in exacerbation - Additional Information Resuscitation Status: Full Code Discharge Diet: As Tolerated Discharge Activity: Activity As Tolerated Referrals: LETICIA JOHNSON MD [Primary Care Provider] - (OFFICE CLOSED ) Home Medications: Omeprazole 20 cap PO QAM 12/03/18 Ondansetron [Ondansetron Odt] 8 mg PO Q6HP PRN 12/03/18 Ropinirole HCl 0.5 mg PO QHS 12/03/18 Zolpidem Tartrate 10 mg PO QHS 12/03/18 Oxycodone HCl/Acetaminophen [Percocet 10-325 mg Tablet] 1 each PO Q4HP PRN 12/04/18 Albuterol Sulfate [Proventil Hfa] 2 puff IH Q4HP PRN 03/14/20 Aspirin [Adult Low Dose Aspirin EC] 162 mg PO QAM 03/14/20 Atorvastatin Calcium [Lipitor 40 mg Tablet] 40 mg PO QHS 03/14/20 Benzonatate [Tessalon Perles 100 mg Capsule] 100 mg PO Q8HP PRN 03/14/20 Cholecalciferol (Vitamin D3) [Vitamin D3 1000 Unit Tablet] 1,000 unit PO DAILY 03/14/20 Cilostazol [Pletal 100 mg Tablet] 100 mg PO BID 03/14/20 Clopidogrel Bisulfate [Plavix 75 mg Tablet] 75 mg PO DAILY 03/14/20 Cyclobenzaprine HCl [Flexeril 10 mg Tablet] 10 mg PO BIDP PRN 03/14/20 Duloxetine HCl [Cymbalta] 60 mg PO BID 03/14/20 Furosemide [Lasix 40 mg Tablet] 40 mg PO QAM 03/14/20 Gabapentin [Neurontin 400 mg Capsule] 800 mg PO Q8 03/14/20 Hydroxyzine Pamoate [Vistaril 25 mg Capsule] 25 mg PO Q4HP PRN 03/14/20 Insulin Detemir [Levemir Insulin 100 units/mL Insulin Pen] 30 unit SUBCUT QHS 03/14/20 Insulin Lispro [Humalog Kwikpen U-100] 5 unit SQ TID 03/14/20 Metformin HCl [Glucophage] 1,000 mg PO BID 03/14/20 Metoprolol Succinate [Toprol Xl] 100 mg PO QAM 03/14/20 Multivitamin [Multiple Vitamins] 1 each PO QAM 03/14/20 Tiotropium [place] [Spiriva Handihaler 5 Cap/Kit (18 Mcg/Cap)] 1 cap IH DAILY 03/14/20 History of Present Illiness History of Present Illness: STAN MARTINES is a 59 year old female with a history of CAD status post CABG in 2016, COPD, type 2 diabetes who now presents with a 2 days duration of epigastric abdominal pain. She described the pain as cramping, 9/10 intensity, constant, nonradiating, aggravated by movement with no clear relieving factor. She also reports associated same duration of a constant retrosternal chest pain with no association with exertion. Patient also reports that she has been feeling nauseated, unable to keep anything down, nonbloody and nonbilious vomiting of ingested matter. She states that she had stress test done recently about 2 to 3 weeks back and was told that it was negative. She denies any cough, shortness of breath, palpitation, dizziness, diarrhea, or any change in her urinary habits. She denies any alcohol use and she had a remote gallbladder surgery. Patient also denies any fever, chills, skin rash. Hospital Course Hospital Course: D2 hospital stay 03/14/20 Patient was seen and examined at bedside. She still reports significant nausea, no vomiting. Abdominal pain controlled with morphine. US abdomen showed findings consistent with pancreatitis, mild central intrahepatic bile duct dilatation. She is still currently on IV fluids and morphine for pain. Diet switched to clear liquid. D3 Hospital stay 03/15/20 Patient was seen and examined at bedside. She reports that she is less nauseous and her abdominal pain has improved. She is able to tolerate clear liquid diet and I have transitioned her to regular diet. The plan is if she is able to tolerate regular diet by tomorrow she can be discharged and follow up with a GI doctor Physical Exam Vital Signs: Temp Pulse Resp BP Pulse Ox 98.4 F 79 21 H 133/72 H 100 03/16/20 11:35 03/16/20 11:35 03/16/20 11:35 03/16/20 11:35 03/16/20 11:35 Intake & Output 03/15/20 03/16/20 03/17/20 06:59 06:59 06:59 Intake Total 1565 2700 1000 Balance 1565 2700 1000 Weight 69.3 kg 67.1 kg General appearance: PRESENT: no acute distress, cooperative Head exam: PRESENT: atraumatic, normocephalic Eye exam: PRESENT: EOMI, PERRLA Mouth exam: PRESENT: moist Neck exam: PRESENT: full ROM Respiratory exam: PRESENT: clear to auscultation chauncey, symmetrical, unlabored Cardiovascular exam: PRESENT: RRR, +S1, +S2 GI/Abdominal exam: PRESENT: normal bowel sounds, soft. ABSENT: rebound, tenderness Extremities exam: PRESENT: full ROM Musculoskeletal exam: PRESENT: full ROM Neurological exam: PRESENT: alert, awake, oriented to person, oriented to place, oriented to time, oriented to situation Psychiatric exam: PRESENT: normal mood Skin exam: PRESENT: normal color Results Laboratory Results: WBC 7.8 10^3/uL (4.0-10.5) 03/14/20 05:13 RBC 3.25 10^6/uL (3.72-5.28) L 03/14/20 05:13 Hgb 9.9 g/dL (12.0-15.5) L 03/14/20 05:13 Hct 28.9 % (36.0-47.0) L 03/14/20 05:13 MCV 89 fl (80-97) 03/14/20 05:13 MCH 30.5 pg (27.0-33.4) 03/14/20 05:13 MCHC 34.3 g/dL (32.0-36.0) 03/14/20 05:13 RDW 13.0 % (11.5-14.0) 03/14/20 05:13 Plt Count 262 10^3/uL (150-450) 03/14/20 05:13 Lymph % (Auto) 28.0 % (13-45) 03/14/20 05:13 [place] % (Auto) 5.7 % (3-13) 03/14/20 05:13 Eos % (Auto) 2.8 % (0-6) 03/14/20 05:13 Baso % (Auto) 0.8 % (0-2) 03/14/20 05:13 Absolute Neuts (auto) 4.9 10^3/uL (1.7-8.2) 03/14/20 05:13 Absolute Lymphs (auto) 2.2 10^3/uL (0.5-4.7) 03/14/20 05:13 Absolute Monos (auto) 0.4 10^3/uL (0.1-1.4) 03/14/20 05:13 Absolute Eos (auto) 0.2 10^3/uL (0.0-0.6) 03/14/20 05:13 Absolute Basos (auto) 0.1 10^3/uL (0.0-0.2) 03/14/20 05:13 Seg Neutrophils % 62.7 % (42-78) 03/14/20 05:13 Sodium 137.3 mmol/L (137-145) 03/14/20 05:13 Potassium 4.4 mmol/L (3.6-5.0) 03/14/20 05:13 Chloride 102 mmol/L (98-107) 03/14/20 05:13 Carbon Dioxide 27 mmol/L (22-30) 03/14/20 05:13 Anion Gap 8 (5-19) 03/14/20 05:13 BUN 15 mg/dL (7-20) 03/14/20 05:13 Creatinine 0.78 mg/dL (0.52-1.25) 03/14/20 05:13 Est GFR ( Amer) > 60 (>60) 03/14/20 05:13 Est GFR (MDRD) Non-Af > 60 (>60) 03/14/20 05:13 Glucose 191 mg/dL (75-110) H 03/14/20 05:13 POC Glucose 251 mg/dL (70-110) H 03/16/20 10:59 Lactic Acid 0.8 mmol/L (0.7-2.1) 03/14/20 01:10 Calcium 9.6 mg/dL (8.4-10.2) 03/14/20 05:13 Magnesium 1.8 mg/dL (1.6-2.3) 03/14/20 05:13 Total Bilirubin 0.4 mg/dL (0.2-1.3) 03/13/20 18:59 Direct Bilirubin 0.2 mg/dL (0.0-0.4) 03/13/20 18:59 Neonat Total Bilirubin Not Reportable 03/13/20 18:59 Neonat Direct Bilirubin Not Reportable 03/13/20 18:59 Neonat Indirect Bili Not Reportable 03/13/20 18:59 AST 18 U/L (14-36) 03/13/20 18:59 ALT 12 U/L (<35) 03/13/20 18:59 Alkaline Phosphatase 161 U/L (38-126) H 03/13/20 18:59 Creatine Kinase 20 U/L (30-135) L 03/13/20 23:00 CK-MB (CK-2) 0.51 ng/mL (<4.55) 03/13/20 23:00 Troponin I < 0.012 ng/mL 03/14/20 05:13 Total Protein 6.6 g/dL (6.3-8.2) 03/13/20 18:59 Albumin 3.7 g/dL (3.5-5.0) 03/13/20 18:59 Triglycerides 194 mg/dL (<150) H 03/14/20 05:13 Cholesterol 154.30 mg/dL (0-200) 03/14/20 05:13 LDL Cholesterol Direct 79 mg/dL (<100) 03/14/20 05:13 VLDL Cholesterol 38.8 mg/dL (10-31) H 03/14/20 05:13 HDL Cholesterol 36 mg/dL (>40) L 03/14/20 05:13 Lipase 1262.2 U/L (23-300) H 03/15/20 04:57 IgG4 29 mg/dL (2-96) 03/14/20 05:13 03/13/20 03/13/20 03/13/20 18:59 23:00 23:00 CK-MB (CK-2) 0.67 0.51 Troponin I < 0.012 < 0.012 03/14/20 05:13 CK-MB (CK-2) Troponin I < 0.012 Impressions: Chest X-Ray 03/13/20 18:52 IMPRESSION: 1. NO ACUTE RADIOGRAPHIC FINDING IN THE CHEST. Chest/Abdomen CTA 03/13/20 18:59 IMPRESSION: Possible pancreatitis. Neoplasm is less likely. Extensive aortic atherosclerotic disease. Nonspecific thickening of the gastric wall. Nonspecific splenic lesion. See additional findings above. No evidence of pulmonary embolus. Abdomen Ultrasound 03/14/20 00:00 IMPRESSION: 1. The pancreas is echogenic and heterogenous in appearance. These findings may be consistent with the patient's history of pancreatitis. 2. Prior cholecystectomy. Mild central intrahepatic biliary ductal dilatation. Plan Plan of Treatment: - ff.up with PCP and GI outpatient - avoid alcohol and fatty foods Stroke Is this a Stroke Patient?: No Acute Heart Failure Is this a Heart Failure Patient?: No
== END 2020-03-16 12:49 | disposition home or self-care (01) | DRG 440 ==
LOC: ER 18:50 → EH 23:29 → 4N 03-14 02:35 → OBSVTOIN 03-14 09:32
PROVIDERS: ADMIT Student in an Organized Health Care Education/Training Program; ATTEND Internal Medicine
DX: K85.90 Acute pancreatitis without necrosis or infection, unspecified (principal); I25.10 Atherosclerotic heart disease of native coronary artery without angina pectoris; E11.51 Type 2 diabetes mellitus with diabetic peripheral angiopathy without gangrene; J44.9 Chronic obstructive pulmonary disease, unspecified; E78.5 Hyperlipidemia, unspecified; I10 Essential (primary) hypertension; M19.90 Unspecified osteoarthritis, unspecified site; R07.9 Chest pain, unspecified; Z87.891 Personal history of nicotine dependence; Z95.1 Presence of aortocoronary bypass graft; Z79.02 Long term (current) use of antithrombotics/antiplatelets; Z88.8 Allergy status to other drugs, medicaments and biological substances; Z79.899 Other long term (current) drug therapy
CPT/HCPCS: 36415; 71045; 71275; 76705; 80048; 80053; 80061; 82550; 82553; 82962; 83605; 83690; 83735; 84484; 85025; 93005; 93010; C9113; J1200; J1650; J1815; J2270; J2405; J2765; J3490; J7120; S0028